=== PATIENT | female | born 1950 | race Caucasian/White ===

== ENCOUNTER 2016-06-13 15:37 | Emergency (ER) | payer MEDICARE, OTHER ==
[2016-06-13 15:46] VITALS: BP 131/63; PULSE 71; RESP 18; TEMP 97.9
--- NOTE | 2016-06-13 15:58 | ED ---
Neck Injury/Pain HPI - General Chief Complaint: Neck Pain/Injury Stated Complaint: Neck Pain Time Seen by Provider: 06/13/16 15:48 Source: patient, RN notes reviewed Mode of arrival: ambulatory Limitations: no limitations - History of Present Illness Initial Comments: 65-year-old female presents emergency Department with chief complaint of neck pain. Patient's had neck pain for last 1-2 weeks that she woke up with a 1 morning. She states on the right side and is not getting any better. She states she has an appointment in [address] Lim orthopedic surgeon. Patient states that she's been taking her tramadol states that helping. She has tried some heat or minimal relief. Patient denies any pain or paresthesias of her upper extremities. Denies any chest pain, shortness breath or any focal weakness. Denies any headache associated with this. She denies fever, chills, blurred vision, dizziness. She is increased pain with range of motion of her neck, better at rest. - Related Data Previous Rx's Medication Instructions Recorded Acetaminophen-Codeine 300-30mg 1 tab PO Q4H PRN #20 tablet 06/13/16 [Tylenol #3] Orphenadrine [Norflex] 100 mg PO Q12H #14 tablet.er 06/13/16 Allergies Allergy/AdvReac Type Severity Reaction Status Date / Time Sulfa (Sulfonamide Allergy Unknown Verified 06/13/16 15:46 Antibiotics) Review of Systems ROS Statement: Those systems with pertinent positive or pertinent negative responses have been documented in the HPI. ROS Other: All systems not noted in ROS Statement are negative. Past Medical History Past Medical History: Diabetes Mellitus, GERD/Reflux, Hyperlipidemia, Hypertension History of Any Multi-Drug Resistant Organisms: None Reported Past Surgical History: Hysterectomy, Orthopedic Surgery Past Psychological History: No Psychological Hx Reported Smoking Status: Never smoker Past Alcohol Use History: None Reported Past Drug Use History: None Reported General Exam Limitations: no limitations General appearance: alert, in no apparent distress Head exam: Present: atraumatic, normocephalic, normal inspection Eye exam: Present: normal appearance, PERRL, EOMI. Absent: scleral icterus, conjunctival injection, periorbital swelling ENT exam: Present: normal exam, normal oropharynx, mucous membranes moist, TM's normal bilaterally, normal external ear exam Neck exam: Present: normal inspection, tenderness (Mild tenderness over the right trapezius, paraspinal there is no step-off deformity of the cervical spine there is muscle spasm noted over the right trapezius), full ROM (Moderate discomfort with rotation, flexion and extension). Absent: meningismus, lymphadenopathy Respiratory exam: Present: normal lung sounds bilaterally. Absent: respiratory distress, wheezes, rales, rhonchi, stridor Cardiovascular Exam: Present: regular rate, normal rhythm, normal heart sounds. Absent: systolic murmur, diastolic murmur, rubs, gallop, clicks Extremities exam: Present: other (Full strength and neurovascularly intact upper extremities patient does report mild discomfort to the right side of her neck with range of motion right shoulder) Back exam: Present: full ROM. Absent: tenderness, paraspinal tenderness, vertebral tenderness Neurological exam: Present: alert, oriented X3, CN II-XII intact, reflexes normal. Absent: motor sensory deficit Course Vital Signs 06/13/16 15:43 Temperature 97.9 F Pulse Rate 71 Respiratory 18 Rate Blood Pressure 131/63 O2 Sat by Pulse 99 Oximetry Medical Decision Making - Medical Decision Making 65-year-old female emergency Department with chief complaint of right-sided neck pain. Patient has of obvious muscle spasm over the right trapezius patient has muscle spasm/torticollis. Patient we treated with muscle relaxers at this time continuation of he, stretching. We discussed follow-up with her orthopedic doctor and primary care physician for possible physical therapy. Return parameters were discussed Disposition Clinical Impression: Neck pain, Trapezius muscle spasm Disposition: HOME SELF-CARE Condition: Stable Instructions: Spasmodic Torticollis (ED) Additional Instructions: Please return to the Emergency Department if symptoms worsen or any other concerns. Prescriptions: Acetaminophen-Codeine 300-30mg [Tylenol #3] 1 tab PO Q4H PRN #20 tablet PRN Reason: pain Orphenadrine [Norflex] 100 mg PO Q12H #14 tablet.er Referrals: Ilir Puente MD [Primary Care Provider] - 1-2 days Time of Disposition: 16:34
--- NOTE | 2016-06-13 16:20 | XR ---
EXAMINATION TYPE: XR cervical spine comp DATE OF EXAM: 06/13/2016 4:10 PM COMPARISON: NONE HISTORY: 65-year-old female neck pain for a couple weeks more severe since yesterday, radiating pain on the right side. TECHNIQUE: 5 views FINDINGS: No predental space widening or prevertebral soft tissue swelling. Hypertrophic facet arthropathy is present especially in the mid cervical spine with grade 1 anterolis thesis at C4-C5 and C5-C6. There is no significant bony spondylotic neuroforaminal narrowing identified on the oblique views. No rmal odontoid view. 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
[2016-06-13] MEDS ORDERED: KETOROLAC 60 MG/2 ML VIAL IM STA (16:47)
[2016-06-13] MEDS ORDERED: ORPHENADRINE 30 MG/ML 2 ML VIAL IM STA (16:47)
== END 2016-06-13 16:55 | disposition home or self-care (01) ==
LOC: EC 15:37
DX: M62.838 Other muscle spasm (principal); M54.2 Cervicalgia; Z88.2 Allergy status to sulfonamides
CPT/HCPCS: 72050; 99283; 96372 ×2; J2360; J1885

== ENCOUNTER → 2016-07-31 | Outpatient (CLI) | payer MEDICARE, OTHER ==
--- NOTE | 2016-08-02 09:36 | MM ---
Reason for exam: screening (asymptomatic). Last mammogram was performed 1 year ago. History: Patient is postmenopausal. Family history of breast cancer in paternal grandmother, breast cancer in maternal aunt, breast cancer in mother at age 61, and breast cancer in paternal aunt. Took estrogen for 8 years beginning at age 49. Physical Findings: A clinical breast exam by your physician is recommended on an annual basis and results should be correlated with mammographic findings. MG 3D Screening Mammo W/Cad Bilateral CC and MLO view(s) were taken. Prior study comparison: July 30, 2015, bilateral MG screening mammo w CAD. June 30, 2014, bilateral MG screening mammo w CAD. June 10, 2013, bilateral digital screening mammo w/CAD. There are scattered fibroglandular densities. No significant changes when compared with prior studies. ASSESSMENT: Negative, BI-RAD 1 RECOMMENDATION: Routine screening mammogram of both breasts in 1 year.
== END | disposition home or self-care (01) ==
LOC: RADMAMWWP 11:28
PROVIDERS: ATTEND Family Medicine
DX: Z12.31 Encounter for screening mammogram for malignant neoplasm of breast (principal)
CPT/HCPCS: 77063; G0202

== ENCOUNTER 2017-02-27 08:09 | Emergency (ER) | payer MEDICARE, OTHER ==
--- NOTE | 2017-02-27 08:33 | ED ---
Fall HPI - General Chief Complaint: Fall Stated Complaint: Fell Time Seen by Provider: 02/27/17 08:22 Source: patient, RN notes reviewed Mode of arrival: ambulatory - History of Present Illness Initial Comments: This a 66-year-old female presents emergency Department chief complaint of slip and fall on ice. Patient states she felt the ground was just wet but was ice. She fell onto asphalt. Patient complains of swelling by her left elbow with mild tenderness and pain with movement, pain to the left hand. Patient is right -hand dominant. Patient denies head injury no LOC. Patient also complains of very minimal pain to her left anterior lateral rib cage region. Patient states she has no back pain no lower extremity injuries. - Related Data Home Medications Medication Instructions Recorded Confirmed Acetaminophen/Diphenhydramine 1 tab PO HS 02/27/17 02/27/17 [Tylenol PM 500-25mg] [facility] 1 tab PO DAILY 02/27/17 02/27/17 Aspirin EC [Ecotrin Low Dose] 81 mg PO DAILY 02/27/17 02/27/17 Atorvastatin [Lipitor] 80 mg PO HS 02/27/17 02/27/17 Bimatoprost [Lumigan .01% Ophth 1 drop BOTH EYES HS 02/27/17 02/27/17 Soln] Calcium Carbonate/Vitamin D3 1 tab PO DAILY 02/27/17 02/27/17 [Calcium 600-Vit D3 200 Tablet] Hydrochlorothiazide [Hydrodiuril] 12.5 mg PO DAILY 02/27/17 02/27/17 Losartan Potassium [Cozaar] 100 mg PO DAILY 02/27/17 02/27/17 Metoprolol Succinate (ER) [Toprol 50 mg PO DAILY 02/27/17 02/27/17 Xl] Multivitamins, Thera [Multivitamin 1 tab PO DAILY 02/27/17 02/27/17 (formulary)] Omeprazole 20 mg PO DAILY 02/27/17 02/27/17 amLODIPine [Norvasc] 10 mg PO DAILY 02/27/17 02/27/17 metFORMIN HCL ER [Glucophage Xr] 500 mg PO HS 02/27/17 02/27/17 traMADol HCL [Ultram] 50 mg PO Q6HR PRN 02/27/17 02/27/17 Allergies Allergy/AdvReac Type Severity Reaction Status Date / Time Sulfa (Sulfonamide Allergy Rash/Hives Verified 02/27/17 08:32 Antibiotics) Review of Systems ROS Statement: Those systems with pertinent positive or pertinent negative responses have been documented in the HPI. ROS Other: All systems not noted in ROS Statement are negative. Past Medical History Past Medical History: Diabetes Mellitus, GERD/Reflux, Hyperlipidemia, Hypertension History of Any Multi-Drug Resistant Organisms: None Reported Past Surgical History: Hysterectomy, Joint Replacement, Orthopedic Surgery Additional Past Surgical History / Comment(s): jas knee replacement Past Psychological History: No Psychological Hx Reported Smoking Status: Never smoker Past Alcohol Use History: None Reported Past Drug Use History: None Reported General Exam Limitations: no limitations General appearance: alert, in no apparent distress Head exam: Present: atraumatic, normocephalic, normal inspection Eye exam: Present: normal appearance, PERRL, EOMI. Absent: scleral icterus, conjunctival injection, periorbital swelling Neck exam: Present: normal inspection, full ROM. Absent: tenderness, meningismus, lymphadenopathy Respiratory exam: Present: normal lung sounds bilaterally, chest wall tenderness (Mild tenderness over the mid anterior to lateral ribs). Absent: respiratory distress, wheezes, rales, rhonchi, stridor Cardiovascular Exam: Present: regular rate, normal rhythm, normal heart sounds. Absent: systolic murmur, diastolic murmur, rubs, gallop, clicks GI/Abdominal exam: Present: soft, normal bowel sounds. Absent: distended, tenderness, guarding, rebound, rigid Extremities exam: Present: other (Left arm there is a large hematoma just distal left elbow patient for range of motion no pain with pronation supination there is tenderness over the left hand fifth are carpal region with no iris deformity neurovascular intact) Back exam: Present: full ROM. Absent: tenderness, muscle spasm, paraspinal tenderness, vertebral tenderness Skin exam: Present: warm, dry, intact, normal color. Absent: rash Course Vital Signs 02/27/17 08:11 Temperature 97.2 F L Pulse Rate 74 Respiratory 16 Rate Blood Pressure 165/80 O2 Sat by Pulse 99 Oximetry Procedures - Orthopedic Splinting/Casting Injury #1 Side: left Upper Extremity Injury Location: long arm, elbow Upper Extremity Immobilizer: sling/shoulder immobilizer, synthetic pre-padded splint Medical Decision Making - Medical Decision Making 66-year-old female presented for fall. X-rays review shows possible radial head fracture. Patient was splinted and placed in a sling will follow-up with orthopedics. Return parameters were discussed. Disposition Clinical Impression: Fall, Radial head fracture, Rib contusion Disposition: HOME SELF-CARE Condition: Stable Instructions: Arm Fracture in Adults (ED) Additional Instructions: Please return to the Emergency Department if symptoms worsen or any other concerns. Referrals: Ilir Puente MD [Primary Care Provider] - 1-2 days Shailesh Irby DO [Doctor of Osteopathic Medicine] - 1-2 days Time of Disposition: 09:50
--- NOTE | 2017-02-27 08:51 | XR ---
EXAMINATION TYPE: XR elbow complete LT DATE OF EXAM: 02/27/2017 CLINICAL HISTORY: pain TECHNIQUE: Frontal, lateral and oblique images of the left elbow are obtained. COMPARISON: None. FINDINGS: There is irregularity of the radial head however this may be chronic in nature. Correlate c linically. Mild prominence of the anterior fat pad. The overlying soft tissue appears unremarkable. IMPRESSION: Radial head irregularity. Correlate for possible fracture. Chronicity of this finding is indeterminat e.
--- NOTE | 2017-02-27 08:58 | XR ---
EXAMINATION TYPE: XR hand complete LT DATE OF EXAM: 02/27/2017 CLINICAL HISTORY: pain TECHNIQUE: Frontal, lateral and oblique images of the left hand are obtained. COMPARISON: None. FINDINGS: There is no acute fracture/dislocation evident. Severe joint space narrowing involving the second third fourth and fifth DIP joints with periarticular soft tissue swelling noted and bony frag mentation identified greatest involving the second digit. Moderate degenerative narrowing involving t he first carpal metacarpal joint as well. The overlying soft tissue appears unremarkable. IMPRESSION: There is no acute fracture or dislocation. ICD 10 NO FRACTURE, INITIAL EVALUATION
--- NOTE | 2017-02-27 08:59 | XR ---
EXAMINATION TYPE: XR ribs LT w pa chest xray DATE OF EXAM: 02/27/2017 COMPARISON: NONE HISTORY: Pain TECHNIQUE: Single view of the chest four views of the ribs are submitted. FINDINGS: The lungs are clear. No Evidence for pneumothorax. No evidence for focal contusion. Medi astinal structures are midline. Evaluation of the ribs fails to demonstrate evidence for displaced r ib fracture or secondary sign of rib fracture. IMPRESSION: Negative study
[2017-02-27 10:03] VITALS: BP 135/95; PULSE 62; RESP 18; TEMP 98.1
== END 2017-02-27 10:02 | disposition home or self-care (01) ==
LOC: EC 08:09
DX: S52.122A Displaced fracture of head of left radius, initial encounter for closed fracture (principal); S20.212A Contusion of left front wall of thorax, initial encounter; E11.9 Type 2 diabetes mellitus without complications; K21.9 Gastro-esophageal reflux disease without esophagitis; E78.5 Hyperlipidemia, unspecified; I10 Essential (primary) hypertension; Z79.82 Long term (current) use of aspirin; Z79.84 Long term (current) use of oral hypoglycemic drugs; Z79.899 Other long term (current) drug therapy; Z88.2 Allergy status to sulfonamides; W00.0XXA Fall on same level due to ice and snow, initial encounter
CPT/HCPCS: 29105; 99283

== ENCOUNTER → 2017-09-10 | Outpatient (CLI) | payer MEDICARE, OTHER ==
--- NOTE | 2017-09-11 09:57 | MM ---
Reason for exam: screening (asymptomatic). Last mammogram was performed 1 year and 1 month ago. History: Patient is postmenopausal. Family history of breast cancer in paternal grandmother, breast cancer in maternal aunt, breast cancer in mother at age 61, and breast cancer in paternal aunt. Took estrogen for 8 years beginning at age 49. Physical Findings: A clinical breast exam by your physician is recommended on an annual basis and results should be correlated with mammographic findings. MG 3D Screening Mammo W/Cad Bilateral CC and MLO view(s) were taken. Prior study comparison: July 31, 2016, bilateral MG 3d screening mammo w/cad. July 30, 2015, bilateral MG screening mammo w CAD. The breast tissue is heterogeneously dense. This may lower the sensitivity of mammography. Finding #1: There is a 20 mm equal density (isodense) mass in the central position of the left breast. Finding #2: There are typically benign calcifications. ASSESSMENT: Incomplete: need additional imaging evaluation, BI-RAD 0 RECOMMENDATION: Special view mammogram of the left breast. If lesion persists on supplemental views, image directed ultrasound is recommended. [facility] will attempt to contact patient to return for supplemental views and ultrasound if indicated.
== END | disposition home or self-care (01) ==
LOC: RADMAMWWP 09:40
PROVIDERS: ATTEND Family Medicine
DX: Z12.31 Encounter for screening mammogram for malignant neoplasm of breast (principal)
CPT/HCPCS: 77063; 77067

== ENCOUNTER → 2017-09-14 | Outpatient (CLI) | payer MEDICARE, OTHER ==
--- NOTE | 2017-09-17 08:51 | MM ---
Reason for exam: additional evaluation requested from abnormal screening. Last mammogram was performed less than 1 month ago. History: Patient is postmenopausal. Family history of breast cancer in paternal grandmother, breast cancer in maternal aunt, breast cancer in mother at age 61, and breast cancer in paternal aunt. Took estrogen for 8 years beginning at age 49. Physical Findings: Nurse did not find any significant physical abnormalities on exam. MG 3D Work Up W/Cad LT Spot compression CC and LM view(s) were taken of the left breast. Prior study comparison: September 10, 2017, bilateral MG 3d screening mammo w/cad. July 31, 2016, bilateral MG 3d screening mammo w/cad. There is no discrete abnormality. These results were verbally communicated with the patient and result sheet given to the patient on 09/14/17. ASSESSMENT: Negative, BI-RAD 1 RECOMMENDATION: Return to routine screening mammogram schedule for both breasts.
== END | disposition home or self-care (01) ==
LOC: RADMAMWWP 10:10
PROVIDERS: ATTEND Family Medicine
DX: R92.8 Other abnormal and inconclusive findings on diagnostic imaging of breast (principal)
CPT/HCPCS: 77065; G0279; 77061

== ENCOUNTER 2017-11-21 08:13 | Day surgery (SDC) | payer MEDICARE, OTHER ==
[2017-11-15 12:21] VITALS: BMI 23.3
[~2017-11-21 08:13] MED LIST: LACTATED RINGERS 1,000 ML IV SCH; MOXIFLOXACIN HCL 0.5% DROPS 3 ML BTL OP ONE; TETRACAINE 0.5% OPHTH (PF) DROPS 4 ML BTL OP ONE; TIMOLOL 0.5% OPHTH DROPS 5 ML BTL OP ONE
[2017-11-21] MEDS: PHENYLEPHRINE 2.5% OPHTH DRP 2ML OP NR ×3 (11:06→11:22)
[2017-11-21] MEDS: CYCLOPENTOLATE 1% OPHTH SOLN 2 ML BTL OP ONE ×3 (11:10→11:25)
[2017-11-21] MEDS ORDERED: LIDOCAINE 1% 20 ML VIAL (10MG/ML) FOR IV START INTRADERMA ONE (11:18)
[2017-11-21 11:22] VITALS: RESP 16; TEMP 97.8
[2017-11-21 11:27] LABS: Glucose,Whole Blood 132 mg/dL (75-99)
[2017-11-21] MEDS ORDERED: LIDOCAINE 1% (PF) 10MG/ML VIAL SQ ONE (12:46)
[2017-11-21] MEDS ORDERED: DUOVISC KIT (GREEN BOX) INTRAOCULA ONE (12:46)
[2017-11-21] MEDS ORDERED: BALANCED SALT IRRIG SOLN COMB2 15 ML IRRIG.SOLN IRRIGATION ONE (12:46)
[2017-11-21] MEDS ORDERED: fentaNYL (PF) 50 MCG/ML 2 ML AMP ONE (12:57)
[2017-11-21] MEDS ORDERED: EPINEPHrine (PF) 0.3 ML in BALANCED SALT IRRIG SOLN COMB2 500 ML IRRIGATION ONE (13:22)
--- NOTE | 2017-11-21 13:31 | P.OP ---
Date of Procedure: 11/21/17 Preoperative Diagnosis: NS & CS & POAG mild Postoperative Diagnosis: same Procedure(s) Performed: PIOL, OD Implants: [id number] 22.50 & GTS 100L Anesthesia: MAC Surgeon: Stanton Cordova Estimated Blood Loss (ml): 0 Pathology: none sent Condition: stable Disposition: same day Indications for Procedure: blurry vision and POAG Operative Findings: No complications
[2017-11-21 13:55] VITALS: BP 116/73; PULSE 54
--- NOTE | 2017-11-22 07:32 | OP ---
OPERATIVE REPORT DATE OF SURGERY: 11/21/2017. PROCEDURES: Phacoemulsification of cataract with intraocular lens implant and eye stent implantation right eye. PREOPERATIVE DIAGNOSES: 1. Nuclear sclerosis. 2. Cortical sclerosis. 3. Primary open-angle glaucoma, mild stage. 4. Regular astigmatism. POSTOPERATIVE DIAGNOSES: 1. Nuclear sclerosis. 2. Cortical sclerosis. 3. Primary open-angle glaucoma, mild stage. 4. Regular astigmatism. SURGEON: Dr. Stanton Cordova. ANESTHESIA: Topical. ESTIMATED BLOOD LOSS: None. SPECIMEN TAKEN: None. NARRATIVE: After obtaining the appropriate consent, the patient was brought to the operating room where she was asked to sit upright and the axes of 0 and 180 degrees were identified and marked on the patient's corneal limbus. She was then placed in the proper supine position under cardiac monitoring, prepped and draped in the usual sterile manner. She was approached from her right temporal side and at the 11 o'clock position, a 20-gauge paracentesis was created through which 1% Xylocaine MPF was mixed with balanced salt solution in 1:1 ratio. This was followed by stabilization of the anterior chamber with Viscoat. The Viscoat medication was placed on the patient's cornea. At the 9 o'clock position, a 2.5 mm keratome was used to create a self-sealing corneal flap incision in a fashion. The patient was then asked to rotate her head approximately 45 degrees to her left and to maintain her gaze in that particular direction. A Gl[place]kos [id number] was passed across the anterior chamber and implanted into the trabecular meshwork on the nasal side of the eye. The patient was then brought to the normal supine position and a cystotome was then used to start a continuous tear capsulorrhexis which was completed using the Utrata forceps. Hydrodissection and hydrodelineation of the lens was accomplished with balanced salt solution. Phacoemulsification of the lens utilizing phaco chop was accomplished in 14.03 seconds at 11% power. Additional Xylocaine MPF was instilled into the anterior chamber. This was followed by removal of the remaining cortex under irrigation and aspiration along with careful polishing of the posterior capsule in the capsule vacuum mode. Provisc was instilled into the capsular bag, which was used to stabilize the anterior chamber. This was followed by a placement of an RAMYA [id number] 22.5 diopter posterior chamber intraocular lens into the capsular bag without difficulty. The remaining viscoelastic was removed from in and around the intra-ocular lens as well as the anterior chamber. Using the tip of the irrigation and aspiration instrument, the intraocular lens was then rotated to the 85 degree axis in concordance with the previously acquired corneal topography information. The eye was then brought to normal intraocular pressures through the paracentesis port with balanced salt solution. The incisions were confirmed watertight. She then received 2 drops of 0.5% timolol followed by 2 drops of Vigamox, was then lightly patched and shielded in the usual manner. There were no complications from the procedure. She tolerated the procedure well and was returned to outpatient recovery in good condition. MMODL / IJN: [id number] /
== END 2017-11-21 14:09 | disposition home or self-care (01) ==
LOC: OR 08:13
PROVIDERS: ATTEND Ophthalmology
DX: H25.13 Age-related nuclear cataract, bilateral (principal); H25.011 Cortical age-related cataract, right eye; E11.36 Type 2 diabetes mellitus with diabetic cataract; H40.1111 Primary open-angle glaucoma, right eye, mild stage; H40.1122 Primary open-angle glaucoma, left eye, moderate stage; H52.229 Regular astigmatism, unspecified eye; H40.233 Intermittent angle-closure glaucoma, bilateral; H47.099 Other disorders of optic nerve, not elsewhere classified, unspecified eye; H43.811 Vitreous degeneration, right eye; H52.12 Myopia, left eye; H52.4 Presbyopia; H04.129 Dry eye syndrome of unspecified lacrimal gland; H35.363 Drusen (degenerative) of macula, bilateral; E11.319 Type 2 diabetes mellitus with unspecified diabetic retinopathy without macular edema; H02.055 Trichiasis without entropion left lower eyelid; I11.9 Hypertensive heart disease without heart failure; D64.9 Anemia, unspecified; M19.90 Unspecified osteoarthritis, unspecified site; J30.2 Other seasonal allergic rhinitis; Z79.84 Long term (current) use of oral hypoglycemic drugs; Z79.891 Long term (current) use of opiate analgesic; Z79.899 Other long term (current) drug therapy; Z88.2 Allergy status to sulfonamides; Z88.8 Allergy status to other drugs, medicaments and biological substances; Z96.653 Presence of artificial knee joint, bilateral; Z90.710 Acquired absence of both cervix and uterus
CPT/HCPCS: 0191T; 66984

== ENCOUNTER 2017-12-05 08:11 | Day surgery (SDC) | payer MEDICARE, OTHER ==
[2017-11-30 10:33] VITALS: BMI 23.3
[~2017-12-05 08:11] MED LIST changes: +HYDROmorphone 0.5 MG/0.5 ML SYRINGE IVP PRN; +LIDOCAINE 1% 20 ML VIAL (10MG/ML) FOR IV START INTRADERMA PRN
[2017-12-05] MEDS: PHENYLEPHRINE 2.5% OPHTH DRP 2ML OP NR ×3 (08:56→09:14)
[2017-12-05] MEDS: CYCLOPENTOLATE 1% OPHTH SOLN 2 ML BTL OP ONE ×3 (08:59→09:17)
[2017-12-05 09:13] VITALS: RESP 16; TEMP 98
[2017-12-05 09:14] LABS: Glucose,Whole Blood 148 mg/dL (75-99)
[2017-12-05] MEDS ORDERED: DUOVISC KIT (GREEN BOX) INTRAOCULA ONE (10:24)
[2017-12-05] MEDS ORDERED: EPINEPHrine (PF) 0.3 ML in BALANCED SALT IRRIG SOLN COMB2 500 ML IRRIGATION ONE (10:24)
[2017-12-05] MEDS ORDERED: LIDOCAINE 1% (PF) 10MG/ML VIAL SQ ONE (10:24)
[2017-12-05] MEDS ORDERED: BALANCED SALT IRRIG SOLN COMB2 15 ML IRRIG.SOLN IRRIGATION ONE (10:24)
--- NOTE | 2017-12-05 10:46 | P.OP ---
Date of Procedure: 12/05/17 Preoperative Diagnosis: NS & CS & POAG mod Postoperative Diagnosis: same Procedure(s) Performed: PIOL & iStent implant Implants: [id number] 23.00 & [id number] Anesthesia: MAC Surgeon: Stanton Cordova Estimated Blood Loss (ml): 2 Pathology: none sent Condition: stable Disposition: same day Indications for Procedure: blurry vision and glaucoma Operative Findings: No complications
[2017-12-05 11:09] VITALS: BP 137/74; PULSE 62
--- NOTE | 2017-12-05 18:24 | OP ---
OPERATIVE REPORT DATE OF SURGERY: December 05, 2017. PROCEDURE PERFORMED: Phacoemulsification of cataract and intraocular lens implant of the left eye with eye stent implantation, left eye. PREOPERATIVE DIAGNOSES: Nuclear sclerosis cortical sclerosis and primary open-angle glaucoma, moderate and regular astigmatism. POSTOPERATIVE DIAGNOSES: Nuclear sclerosis cortical sclerosis and primary open-angle glaucoma, moderate and regular astigmatism. SURGEONS: Dr. Stanton Cordova. ANESTHESIA: Topical. ESTIMATED BLOOD LOSS: None. SPECIMEN: Taken none. NARRATIVE: After obtaining the appropriate consent, the patient was brought to the operating room. There she was asked to sit upright and the axis 0 and 180 degrees were identified and marked with a gentian ronaldo marker. She was then placed in the proper supine position on the bed and under cardiac monitoring and was then prepped and draped in the usual sterile manner. She was approached from her left temporal side using previously acquired corneal topography information, the axis of 98 degrees was identified and marked on the patient's eye. At the 5 o'clock position an MVR blade was used to create a paracentesis port. Through this opening 1% Xylocaine MPF 50 50 mix of balanced salt solution was injected into the anterior chamber. This was followed by stabilization of the anterior chamber with Viscoat. At the 5 o'clock position, a 2.5 mm keratome was used to create a self-sealing corneal flap incision in a Langerman's fashion. A small amount of Viscoat was placed on the patient's cornea and the patient was asked to rotate her head approximately 45 degrees to her right while maintaining a straight- ahead gaze. The gonioscopy lens was placed on the patient's cornea and identification of the trabecular meshwork was easily accomplished. Using an eye stent model [id number], the instrument was passed across the anterior chamber of the eye to the nasal trabecular meshwork and the stent was placed within each lens canal beneath the trabecular meshwork. There was noted an appropriate amount of blood at the completion of placement of the stent. The patient was then returned to the normal supine position and a cystotome was introduced to begin a continuous tear capsulorrhexis which was completed using the Utrata forceps. Hydrodissection and hydrodelineation of the lens was accomplished with balanced salt solution. Phacoemulsification lens utilizing phaco chop was accomplished in 7.59 seconds at 8% power. Additional Xylocaine MPF was instilled in the eye, followed by removal of the remaining cortex in and around the capsular bag along with careful polishing of the posterior capsule in the capsule vacuum mode. Provisc was then placed into the capsular bag and an RAMYA model [id number] 225 23.0 diopter posterior chamber intraocular lens was then placed into the capsular bag without difficulty. Irrigation/aspiration was used to remove the viscoelastic from in and around the intra-ocular lens along with reorienting the lens in its prescribed position at the 98 degree axis. The lens was lightly tamped using the tip of the IA instrument. The balance of the viscoelastic from the anterior chamber was also removed under that irrigation aspiration. The eye was then brought to normal intraocular pressures through the paracentesis port with balanced salt solution and the incisions were confirmed watertight. She then received 2 drops of 0.5% timolol followed by 2 drops of moxifloxacin, was then lightly patched and shielded in the usual manner. There were no complications from the procedure. She tolerated the procedure well and was returned to outpatient recovery in good condition. RYANN / LAURELN: [id number] /
== END 2017-12-05 11:24 | disposition home or self-care (01) ==
LOC: OR 08:11
PROVIDERS: ATTEND Ophthalmology
DX: H25.12 Age-related nuclear cataract, left eye (principal); H25.012 Cortical age-related cataract, left eye; E11.36 Type 2 diabetes mellitus with diabetic cataract; H40.1122 Primary open-angle glaucoma, left eye, moderate stage; H40.1111 Primary open-angle glaucoma, right eye, mild stage; H52.229 Regular astigmatism, unspecified eye; H40.233 Intermittent angle-closure glaucoma, bilateral; H47.099 Other disorders of optic nerve, not elsewhere classified, unspecified eye; H43.811 Vitreous degeneration, right eye; H52.12 Myopia, left eye; H52.4 Presbyopia; H04.129 Dry eye syndrome of unspecified lacrimal gland; H53.10 Unspecified subjective visual disturbances; H35.363 Drusen (degenerative) of macula, bilateral; E11.319 Type 2 diabetes mellitus with unspecified diabetic retinopathy without macular edema; I11.9 Hypertensive heart disease without heart failure; K21.9 Gastro-esophageal reflux disease without esophagitis; Z96.1 Presence of intraocular lens; Z96.653 Presence of artificial knee joint, bilateral; Z79.899 Other long term (current) drug therapy; Z79.891 Long term (current) use of opiate analgesic; Z88.2 Allergy status to sulfonamides; Z90.710 Acquired absence of both cervix and uterus
CPT/HCPCS: 0191T; 66984

== ENCOUNTER → 2018-10-21 | Outpatient (CLI) | payer MEDICARE, OTHER ==
--- NOTE | 2018-10-21 15:01 | MM ---
Reason for exam: screening (asymptomatic). Last mammogram was performed 1 year and 1 month ago. History: Patient is postmenopausal. Family history of breast cancer in paternal grandmother, breast cancer in maternal aunt, breast cancer in mother at age 61, and breast cancer in paternal aunt. Took estrogen for 8 years beginning at age 49. Physical Findings: A clinical breast exam by your physician is recommended on an annual basis and results should be correlated with mammographic findings. MG 3D Screening Mammo W/Cad Bilateral CC and MLO view(s) were taken. Prior study comparison: September 14, 2017, left breast MG 3d work up w/cad LT. September 10, 2017, bilateral MG 3d screening mammo w/cad. There are scattered fibroglandular densities. Focal asymmetry central left CC view 6.4cm from nipple. This finding is changed when compared with previous exams. ASSESSMENT: Incomplete: need additional imaging evaluation, BI-RAD 0 RECOMMENDATION: Special view mammogram of the left breast. If lesion persists on supplemental views, image directed ultrasound is recommended. [facility] will attempt to contact patient to return for supplemental views and ultrasound if indicated.
== END | disposition home or self-care (01) ==
LOC: RADMAMWWP 09:06
PROVIDERS: ATTEND Family Medicine
DX: Z12.31 Encounter for screening mammogram for malignant neoplasm of breast (principal)
CPT/HCPCS: 77063; 77067

== ENCOUNTER → 2018-11-04 | Outpatient (CLI) | payer MEDICARE, OTHER ==
--- NOTE | 2018-11-04 11:37 | MM ---
Reason for exam: additional evaluation requested from abnormal screening. Last mammogram was performed less than 1 month ago. History: Patient is postmenopausal. Family history of breast cancer in paternal grandmother, breast cancer in maternal aunt, breast cancer in mother at age 61, and breast cancer in paternal aunt. Took estrogen for 8 years beginning at age 49. Physical Findings: Nurse did not find any significant physical abnormalities on exam. MG 3D Work Up W/Cad LT Spot compression CC, spot compression MLO, and ML view(s) were taken of the left breast. Prior study comparison: October 21, 2018, bilateral MG 3d screening mammo w/cad. September 14, 2017, left breast MG 3d work up w/cad LT. There are scattered fibroglandular densities. Left upper outer quadrant distortion persists 5cm from nipple at 12 o'clock. These results were verbally communicated with the patient and result sheet given to the patient on 11/04/18. ASSESSMENT: Incomplete: need additional imaging evaluation, BI-RAD 0 RECOMMENDATION: Ultrasound of the left breast.
--- NOTE | 2018-11-04 11:39 | USB ---
Reason for exam: additional evaluation requested from abnormal screening. History: Patient is postmenopausal. Family history of breast cancer in paternal grandmother, breast cancer in maternal aunt, breast cancer in mother at age 61, and breast cancer in paternal aunt. Took estrogen for 8 years beginning at age 49. US Breast Workup Limited LT Left limited breast ultrasound including focal area of concern, retroareolar and axilla demonstrates no cystic or solid lesion seen. No sonographic correlate to the suspicious sonographic finding. These results were verbally communicated with the patient and result sheet given to the patient on 11/04/18. ASSESSMENT: Suspicious, BI-RAD 4 RECOMMENDATION: Stereotactic core biopsy of the left breast. (3D) Called with mammographic findings and has scheduled an appointment for the patient for 11/29/18 at 11:[address] Diaz. PRELIMINARY REPORT CALLED AND FAXED TO DR. DIAZ ON 11/04/18.
== END | disposition home or self-care (01) ==
LOC: RADMAMWWP 08:53
PROVIDERS: ATTEND Family Medicine
DX: R92.8 Other abnormal and inconclusive findings on diagnostic imaging of breast (principal)
CPT/HCPCS: 77065; 76642; G0279; 77061

== ENCOUNTER → 2018-11-29 | Outpatient (CLI) | payer MEDICARE, OTHER ==
[2018-11-29 11:18] VITALS: BP 146/73; PULSE 56; RESP 16; TEMP 97.9; BMI 24.2
--- NOTE | 2018-11-29 11:43 | P.GSHP ---
History of Present Illness H&P Date: 11/29/18 Chief Complaint: abnormal mammogram Debbie is a 59-year-old white female who presents for breast evaluation. She had a recent routine screening mammogram which revealed focal asymmetry in the central portion of the left breast 6.4 cm from the nipple. An ultrasound did not show anything of concern at this site. The patient was recommended to undergo a 3-D stereotactic core biopsy of the left breast. The patient states that her left breast is larger than her right breast and has been such for some time. At times if she is bumped in the breast by a grandchild or other pressure she has some discomfort in the upper central portion of the breast. She does not feel any discrete lumps or masses. She has no history of recent trauma or infection in the breast. She has no nipple discharge or skin changes in the breast. She does drink 3 cups of coffee per day. She does not smoke and is not exposed to secondhand smoke. She has chocolate on occasion. The patient was given the option in the past to do chemoprevention with tamoxifen and she chose not to. Marsha model risk evaluation: 5 year risk 3% versus 2.1% for average 68-year-old female Lifetime risk 9.5% versus 6.9% for average 68-year-old female We have discussed chemoprevention 5 year risk greater than 1.7% qualified. The patient however at this time is not interested. Family history: mother: breast cancer at 64, kidney cancer maternal aunt: breat cancer, hodgkins maternal grandmother: skin cancer paternal aunt: breast cancer Hormonal History: menarche: 16 , breast fed: no, age at first : 20 menopause: complete hysterectomy at 49 no cancer BCP: 2 years hormones: 1 year Surgical history: 1. Complete hysterectomy 2.bilateral knee replacement 3. bilateral cataract surgery Medical HIstory: Dm HTN high cholesterol glaucoma Social History: smoke: none alcohol: none drugs: none - Constitutional Constitutional: Reports sweats, Denies chills, Denies fever - EENT Eyes: denies blurred vision, denies pain Ears: deny: decreased hearing, tinnitus Ears, nose, mouth and throat: Denies headache, Denies sore throat - Breasts Breasts: bilateral: as per HPI - Cardiovascular Cardiovascular: Denies chest pain, Denies shortness of breath - Respiratory Respiratory: Denies cough, Denies 7 - Gastrointestinal Gastrointestinal: Denies abdominal pain, Denies diarrhea, Denies nausea, Denies vomiting - Genitourinary (Female) Genitourinary: Denies dysuria, Denies hematuria - Menstruation Menstruation: Reports post hysterectomy - Musculoskeletal Comment: arthritis - Integumentary Integumentary: Denies pruritus, Denies rash - Neurological Neurological: Denies numbness, Denies weakness - Psychiatric Psychiatric: Denies anxiety, Denies depression - Endocrine Comment: diabetes, metformin Endocrine: Denies fatigue, Denies weight change - Hematologic/Lymphatic Comment: baby aspirin daily - Allergic/Immunologic Allergic/Immunologic: Reports seasonal allergies Past Medical History Past Medical History: Diabetes Mellitus, Eye Disorder, GERD/Reflux, Hyperlipidemia, Hypertension Additional Past Medical History / Comment(s): CATARACTS. NARROW ANGLE GLAUCOMA History of Any Multi-Drug Resistant Organisms: None Reported Past Surgical History: Hysterectomy, Joint Replacement, Orthopedic Surgery Additional Past Surgical History / Comment(s): jas knee replacement; R Cataract; R knee scope, colonoscopy Past Anesthesia/Blood Transfusion Reactions: No Reported Reaction Past Psychological History: No Psychological Hx Reported Smoking Status: Never smoker Past Alcohol Use History: None Reported Past Drug Use History: None Reported - Past Family History Mother Family Medical History: CVA/TIA, Diabetes Mellitus Medications and Allergies Home Medications Medication Instructions Recorded Confirmed Type Acetaminophen/Diphenhydramine 1 tab PO HS 02/27/17 11/29/18 History [Tylenol PM 500-25mg] Aspirin EC [Ecotrin Low Dose] 81 mg PO DAILY 02/27/17 11/29/18 History Atorvastatin [Lipitor] 80 mg PO HS 02/27/17 11/29/18 History Calcium Carbonate/Vitamin D3 1 tab PO DAILY 02/27/17 11/29/18 History [Calcium 600-Vit D3 200 Tablet] Hydrochlorothiazide [Hydrodiuril] 12.5 mg PO DAILY 02/27/17 11/29/18 History Losartan Potassium [Cozaar] 100 mg PO DAILY 02/27/17 11/29/18 History Metoprolol Succinate (ER) [Toprol 50 mg PO DAILY 02/27/17 11/29/18 History Xl] Multivitamins, Thera [Multivitamin 1 tab PO DAILY 02/27/17 11/29/18 History (formulary)] Omeprazole 20 mg PO DAILY 02/27/17 11/29/18 History amLODIPine [Norvasc] 10 mg PO DAILY 02/27/17 11/29/18 History metFORMIN HCL ER [Glucophage Xr] 500 mg PO HS 02/27/17 11/29/18 History traMADol HCL [Ultram] 50 mg PO Q6HR PRN 02/27/17 11/29/18 History Allergies Allergy/AdvReac Type Severity Reaction Status Date / Time Sulfa (Sulfonamide Allergy Rash/Hives Verified 11/29/18 10:59 Antibiotics) Surgical - Exam Vital Signs Temp Pulse Resp BP Pulse Ox 97.9 F 56 L 16 146/73 98 11/29/18 11:10 11/29/18 11:10 11/29/18 11:10 11/29/18 11:10 11/29/18 11:10 - General well developed, well nourished, no distress - Eyes normal ocular movement - ENT no hearing loss, no congestion - Neck no masses, trachea midline - Respiratory normal respiratory effort, clear to auscultation - Cardiovascular Rhythm: regular Heart Sounds: normal: S1, S2 - Abdomen Abdomen: soft, non tender, no guarding, no rigid, no rebound - Integumentary normal turgor - Neurologic no disoriented, no combative - Musculoskeletal normal gait, normal posture - Psychiatric oriented to time, oriented to person, oriented to place, speech is normal, memory intact breast exam: Right breast: Multi-positional exam fibrocystic changes, no dominant masses or nodules of concern Right axilla: No adenopathy of concern Left breast: Slightly larger than the right breast, multiple positional exam fibrocystic changes slightly increased fullness in the 12 o'clock position but no discrete masses or nodules of concern Left axilla: No adenopathy of concern Results review mammogram Assessment and Plan Assessment: Impression: 1. Abnormal mammogram left breast 2. Family history of cancer 3. Family history of breast cancer 4. Fibrocystic breast changes 5. Localized mass left breast 12 o'clock position 6. Diabetes 7. Narrow-angle glaucoma 8. High cholesterol 9. Arthritis 10. elevated risk of breast cancer Plan: 1. 3-D stereo biopsy left breast 2. Patient is going to decrease her caffeine intake 3. We have discussed chemoprevention and patient is not interested at this time 4. Medical management of medical conditions 5. Follow up after stereo biopsy CC: DR. Fernandez
== END | disposition home or self-care (01) ==
LOC: WWCWWP 10:49
PROVIDERS: ATTEND Surgery
DX: Z53.9 Procedure and treatment not carried out, unspecified reason (principal)

== ENCOUNTER → 2018-12-13 | Outpatient (CLI) | payer MEDICARE, OTHER ==
[2018-12-13 14:44] VITALS: BP 161/88; PULSE 61; RESP 18; TEMP 97.8; BMI 24.2
--- NOTE | 2018-12-13 14:53 | P.PN ---
Subjective Progress Note Date: 12/13/18 Haleigh is status post left breast stereotactic core biopsy done on the 3-D machine. Pathology is benign this revealed benign breast parenchyma no evidence of cancer this is believed to be concordant. The patient has no complaints related to the procedure. Objective - Vital Signs Vital signs: Vital Signs Temp 97.8 F 12/13/18 14:42 Pulse 61 12/13/18 14:42 Resp 18 12/13/18 14:42 BP 161/88 12/13/18 14:42 Pulse Ox 97 12/13/18 14:42 Intake & Output 12/12/18 12/13/18 12/13/18 18:59 06:59 18:59 Weight 68.039 kg - Constitutional General appearance: Present: average body habitus - EENT Eyes: Present: EOMI ENT: Present: hearing grossly normal - Neck Neck: Present: normal ROM - Respiratory Respiratory: bilateral: CTA - Cardiovascular Rhythm: regular Heart sounds: normal: S1, S2 - Integumentary Integumentary: Present: normal turgor - Musculoskeletal Musculoskeletal: Present: gait normal - Psychiatric Psychiatric Comment(s): Left breast biopsy site clean and dry Mild ecchymosis Very small hematoma no evidence of any infection Assessment and Plan Assessment: Impression: 1. Left breast stereotactic core biopsy benign 2. Fibrocystic breast changes 3. small hematoma at biopsy site 4. mild echymosis at biopsy site Plan: 1. Repeat left breast mammogram and physician exam in 6 months 2. Patient to call sooner if any questions or concerns Cc:
== END ==
LOC: WWCWWP 14:36
PROVIDERS: ATTEND Surgery
DX: Z53.9 Procedure and treatment not carried out, unspecified reason (principal)

== ENCOUNTER → 2019-10-28 | Outpatient (CLI) | payer MEDICARE, OTHER ==
--- NOTE | 2019-10-28 11:35 | MM ---
Reason for exam: follow-up at short interval from prior study. Last mammogram was performed 1 year ago. History: Patient is postmenopausal. Family history of breast cancer in maternal grandmother at age 75 and breast cancer in mother at age 55. Benign stereotactic core biopsy of the left breast, November 2018. Took estrogen for 8 years beginning at age 49. Physical Findings: Nurse did not find any significant physical abnormalities on exam. MG 3D Diag Mammo W/Cad MICHELLE Bilateral CC and MLO view(s) were taken. Prior study comparison: October 21, 2018, bilateral MG 3d screening mammo w/cad. September 10, 2017, bilateral MG 3d screening mammo w/cad. July 31, 2016, bilateral MG 3d screening mammo w/cad. There are scattered fibroglandular densities. Finding #1: There is a new 12 mm irregular mass located 7-8 cm from the nipple in the upper outer quadrant of the left breast at previous mammotome biopsy in the left breast. Finding #2: There are typically benign linear calcifications in both breasts. Skin lesion left breast. These results were verbally communicated with the patient and result sheet given to the patient on 10/28/19. ASSESSMENT: Incomplete: need additional imaging evaluation, BI-RAD 0 RECOMMENDATION: Ultrasound of the left breast.
--- NOTE | 2019-10-28 11:37 | USB ---
Reason for exam: additional evaluation requested from abnormal screening. History: Patient is postmenopausal. Family history of breast cancer in maternal grandmother at age 75 and breast cancer in mother at age 55. Benign stereotactic core biopsy of the left breast, November 2018. Took estrogen for 8 years beginning at age 49. US Breast Limited LT Left limited breast ultrasound including focal area of concern, retroareolar and axilla demonstrates a 1.2 x 0.8 x 1.3cm spiculated, irregular, hypoechoic lesion at 11 o'clock. These results were verbally communicated with the patient and result sheet given to the patient on 10/28/19. ASSESSMENT: Suspicious, BI-RAD 4 RECOMMENDATION: Ultrasound core biopsy of the left breast. Called office with mammographic findings and has scheduled an appointment for the patient for 12/05/19 at 9:[address] Diaz. Biopsy scheduled for 11/18/19 at 1:00. PRELIMINARY REPORT CALLED AND FAXED TO DR. DIAZ ON 10/28/19.
== END | disposition home or self-care (01) ==
LOC: RADMAMWWP 08:54
PROVIDERS: ATTEND Surgery
DX: R92.8 Other abnormal and inconclusive findings on diagnostic imaging of breast (principal)
CPT/HCPCS: 77066; 76642; G0279; 77062

== ENCOUNTER → 2019-11-19 | Day surgery (SDC) | payer MEDICARE, OTHER ==
[2019-11-19 09:41] VITALS: RESP 16
[2019-11-19 11:21] VITALS: BP 112/59; PULSE 58; TEMP 98.1
--- NOTE | 2019-11-19 11:21 | USB ---
EXAMINATION TYPE: US biopsy breast VAD LT, MG post biopsy diagnostic mammo LT wo CAD DATE OF EXAM: 11/19/2019 CLINICAL HISTORY: 68-year-old female with history of a benign mammographic guided core needle biopsy of the left breast in November 2018 (with benign results) but with follow-up showing an enlarging de nsity and a new ultrasound finding. R92.8 Abnormal Mammogram. Referred for ultrasound-guided core nee dle rebiopsy. TECHNIQUE: Ultrasound guided core biopsy of the 11:00 left breast. COMPARISON: 10/28/2019, 02/28/2019 FINDINGS: The procedure of ultrasound guided core biopsy was explained to the patient. Benefits, alt ernatives, and risks were discussed. An informed consent was then obtained. An area of irregular shadowing is demonstrated at the 11:00 position zone A with an inlying echogenic clip. The patient was placed in supine positioning for imaging and for the procedure. The overlying skin w as prepped and draped in usual sterile fashion. Lidocaine was used as anesthetic into the skin and s ubcutaneous tissue up to area of concern in the 11:00 left breast. Under ultrasound guidance, a 13-gauge vacuum-assisted mammotome biopsy gun was used to obtain 11 core samples. The area was extensively sampled with the trough first directed anteriorly, then inferiorl y, and then posteriorly. Following this, a coil clip was left in lesion. The patient tolerated the procedure well without any immediate complication. The patient was kept in the radiology department for short stay after the procedure and then discharged home in stable condi tion. Post procedure mammogram shows the 11-12 o'clock focal asymmetry with both a top hat and coil clip in place. IMPRESSION: Successful, uncomplicated ultrasound guided core biopsy of the 11:00 left breast enlarging focal asym metry despite previous benign pathology results on mammographic biopsy performed November 2018. If r esults remain benign, close follow-up versus needle localization and excision should be considered. F ull pathology results to follow.
== END ==
LOC: RADUSWWP 09:26
PROVIDERS: ATTEND Surgery
DX: N60.12 Diffuse cystic mastopathy of left breast (principal); L90.5 Scar conditions and fibrosis of skin
CPT/HCPCS: 77065; 19083; A4648; J2001; 88305

== ENCOUNTER → 2019-12-05 | Outpatient (CLI) | payer MEDICARE, OTHER ==
[2019-12-05 09:52] VITALS: BP 154/80; PULSE 61; RESP 18; TEMP 98.1
--- NOTE | 2019-12-05 10:20 | P.PN ---
Subjective Progress Note Date: 12/05/19 Principal diagnosis: Ultrasound-guided core biopsy of the left breast Haleigh is a 69-year-old white female who underwent a bilateral mammogram and [id number]. This revealed a 12 mm irregular mass in the upper outer quadrant of the left breast at previous mammotome biopsy site. There are also noted to be benign linear calcifications in both breasts. An ultrasound of the left breast was recommended. Ultrasound was performed which revealed a 1.2 x 1.3 cm spiculated irregular lesion at 11:00. She subsequently underwent an ultrasound- guided core biopsy of this lesion on 9920. Pathology revealed fibrocystic spectrum lesion with focal fibroadenomatoid hyperplasia scar in the bone with benign adipose tissue. However the lesion was felt to be discordant with the radiographic findings. It was reviewed with radiology Dr. Boykin and recommendation was for needle local excisional biopsy. The patient states she feels fullness in that area. She has pain in that area if it is touched. She does drink 4 cups of coffee per day. She does not smoke and is not exposed to secondhand smoke. She has chocolate on occasion. The patient was given the option in the past to do chemoprevention with tamoxifen and she chose not to. We have discussed chemoprevention 5 year risk greater than 1.7% qualified. The patient however at this time is not interested; shows a family history of breast cancer in her mother and she and her sisters were given a recommendation for tamoxifen. However after discussion with her [employer] she opted not to do that. Family history: mother: breast cancer at 64, kidney cancer maternal aunt: breast cancer, hodgkins maternal great grandmother: breast cancer maternal grandmother: skin cancer paternal aunt: breast cancer Hormonal History: menarche: 16 , breast fed: no, age at first : 20 menopause: complete hysterectomy at 49 no cancer BCP: 2 years hormones: 1 year Surgical history: 1. Complete hysterectomy 2.bilateral knee replacement 3. bilateral cataract surgery Medical HIstory: Dm HTN high cholesterol glaucoma Social History: smoke: none alcohol: none drugs: none - Constitutional Constitutional: Reports sweats, Denies chills, Denies fever - EENT Eyes: denies blurred vision, denies pain Ears: deny: decreased hearing, tinnitus Ears, nose, mouth and throat: Denies headache, Denies sore throat - Breasts Breasts: bilateral: as per HPI - Cardiovascular Cardiovascular: Denies chest pain, Denies shortness of breath - Respiratory Respiratory: Denies cough - Gastrointestinal Gastrointestinal: Denies abdominal pain, Denies diarrhea, Denies nausea, Denies vomiting - Genitourinary (Female) Genitourinary: Denies dysuria, Denies hematuria - Menstruation Menstruation: Reports post hysterectomy - Musculoskeletal Comment: arthritis - Integumentary Integumentary: Denies pruritus, Denies rash - Neurological Neurological: Denies numbness, Denies weakness - Psychiatric Psychiatric: Denies anxiety, Denies depression - Endocrine Comment: diabetes, metformin Endocrine: Denies fatigue, Denies weight change - Hematologic/Lymphatic Comment: baby aspirin daily - Allergic/Immunologic Allergic/Immunologic: Reports seasonal allergies Objective - Vital Signs Vital signs: Vital Signs Temp 98.1 F 12/05/19 09:50 Pulse 61 12/05/19 09:50 Resp 18 12/05/19 09:50 BP 154/80 12/05/19 09:50 Pulse Ox 99 12/05/19 09:50 Intake & Output 12/04/19 12/05/19 12/05/19 18:59 06:59 18:59 Weight 65.317 kg - Exam BMI 25.3 - Constitutional General appearance: Present: average body habitus - EENT Eyes: Present: EOMI ENT: Present: hearing grossly normal - Neck Neck: Present: normal ROM - Respiratory Respiratory: bilateral: CTA - Cardiovascular Rhythm: regular Heart sounds: normal: S1, S2 - Gastrointestinal General gastrointestinal: Present: normal bowel sounds, soft - Integumentary Integumentary: Present: normal turgor - Musculoskeletal Musculoskeletal: Present: gait normal - Psychiatric Psychiatric: Present: A&O x's 3, appropriate affect, intact judgment & insight - Additional findings Additional findings: breast exam: BRA: 38C inspection: left breast larger than right breast, ptosis grade 2 bilateral Patient: Right breast: Multiple positional exam fibrocystic changes, no dominant masses or nodules of concern Right axilla: No adenopathy of concern Left breast: Multiple positional exam no dominant masses or nodules of concern larger than right breast, mild increased fullness in the upper outer quadrant area well-healed biopsy site Left axilla: No adenopathy of concern Assessment and Plan Assessment: Impression: 1. Left breast status post ultrasound-guided core biopsy felt to be discordant with radiographic findings therefore needle localization excisional biopsy recommended 2. Family history of cancer 3. Diabetes 4. Hypertension 5. High cholesterol 6. Glaucoma Plan: 1. Needle localization excisional lumpectomy left breast for discordant lesion, possible onco-plastic tissue transfer 2. Surgical clearance from Dr. Puente CC: Dr. Puente The skin benefits of procedure discussed with the patient. These include but are not limited to bleeding, infection, reaction to the anesthetic. The possibility that the lesion of concern would not be excised to necessitate additional procedure. She understands these and wishes to proceed. encounter 25 minutes, > 50% of time in planning and counselling
== END | disposition home or self-care (01) ==
LOC: WWCWWP 09:39
PROVIDERS: ATTEND Surgery
DX: Z53.9 Procedure and treatment not carried out, unspecified reason (principal)

== ENCOUNTER → 2020-01-22 | Outpatient (CLI) | payer MEDICARE, OTHER ==
[2020-01-22 15:08] VITALS: BP 146/85; PULSE 59; RESP 18; TEMP 97.8
--- NOTE | 2020-01-22 15:18 | P.PN ---
Subjective Progress Note Date: 01/22/20 Principal diagnosis: discordant left breast core biopsy Haleigh is a 69-year-old white female who underwent [place] mammogram [place] [id number]. This revealed a 12 mm irregular mass in the upper outer quadrant of the left breast at previous mammotome biopsy site. There are also noted to be benign linear calcifications in both breasts. An ultrasound of the left breast was recommended. Ultrasound was performed which revealed a 1.2 x 1.3 cm spiculated irregular lesion at 11:00. She subsequently underwent an ultrasound- guided core biopsy of this lesion on 9920. Pathology revealed fibrocystic spectrum lesion with focal fibroadenomatoid hyperplasia scar with benign adipose tissue. However, the lesion was felt to be discordant with the radiographic findings. It was reviewed with radiology Dr. Boykin and recommendation was for needle local excisional biopsy. The patient states she feels fullness in that area. She has pain in that area if it is touched. She does drink 4 cups of coffee per day. She does not smoke and is not exposed to secondhand smoke. She has chocolate on occasion. The patient was given the option in the past to do chemoprevention with tamoxifen and she chose not to. We have discussed chemoprevention 5 year risk greater than 1.7% qualified. The patient however at this time is not interested; shows a family history of breast cancer in her mother and she and her sisters were given a recommendation for tamoxifen. However after discussion with her SYSTEM ARCHIVE ANALYST she opted not to do that. Family history: mother: breast cancer at 64, kidney cancer maternal aunt: breast cancer, hodgkins maternal great grandmother: breast cancer maternal grandmother: skin cancer paternal aunt: breast cancer Hormonal History: menarche: 16 , breast fed: no, age at first : 20 menopause: complete hysterectomy at 49 no cancer BCP: 2 years hormones: 1 year Surgical history: 1. Complete hysterectomy 2.bilateral knee replacement 3. bilateral cataract surgery Medical HIstory: Dm HTN high cholesterol glaucoma Social History: smoke: none alcohol: none drugs: none - Constitutional Constitutional: Reports sweats, Denies chills, Denies fever - EENT Eyes: denies blurred vision, denies pain Ears: deny: decreased hearing, tinnitus Ears, nose, mouth and throat: Denies headache, Denies sore throat - Breasts Breasts: bilateral: as per HPI - Cardiovascular Cardiovascular: Denies chest pain, Denies shortness of breath - Respiratory Respiratory: Denies cough - Gastrointestinal Gastrointestinal: Denies abdominal pain, Denies diarrhea, Denies nausea, Denies vomiting - Genitourinary (Female) Genitourinary: Denies dysuria, Denies hematuria - Menstruation Menstruation: Reports post hysterectomy - Musculoskeletal Comment: arthritis - Integumentary Integumentary: Denies pruritus, Denies rash - Neurological Neurological: Denies numbness, Denies weakness - Psychiatric Psychiatric: Denies anxiety, Denies depression - Endocrine Comment: diabetes, metformin Endocrine: Denies fatigue, Denies weight change - Hematologic/Lymphatic Comment: baby aspirin daily - Allergic/Immunologic Allergic/Immunologic: Reports seasonal allergies Objective - Exam BMI 24.7 - Constitutional General appearance: Present: average body habitus - EENT Eyes: Present: EOMI ENT: Present: hearing grossly normal - Neck Neck: Present: normal ROM - Respiratory Respiratory: bilateral: CTA - Cardiovascular Rhythm: regular Heart sounds: normal: S1, S2 - Gastrointestinal General gastrointestinal: Present: normal bowel sounds, soft - Integumentary Integumentary: Present: normal turgor - Musculoskeletal Musculoskeletal: Present: gait normal - Psychiatric Psychiatric: Present: A&O x's 3, appropriate affect - Additional findings Additional findings: breast exam: from exam of (12-05-19) BRA: 38C Inspection: Left breast larger than right breast, ptosis grade 2 bilateral Palpation: right bresat : Multiple positional exam fibrocystic changes, no dominant masses or nodules of concern Right axilla: No adenopathy of concern left bresat: Multiple positional exam no dominant masses or nodules of concern i s larger than the right breast, mild increase fullness upper-outer quadrant area well-healed biopsy site Left axilla: No adenopathy of concern Assessment and Plan Assessment: Impression: 1. Left breast status post ultrasound-guided core biopsy felt to be discordant with radiographic findings therefore needle localization and excisional biopsy recommended 2. Family history of cancer 3. Diabetes 4. Hypertension 5. High cholesterol 6. Glaucoma Plan: 1. Needle localization excisional lumpectomy left breast for discordant lesion, possible onco plastic tissue transfer, will not do a mastopexy incision 2. Surgical clearance from Dr. Puente Risks and benefits of procedure discussed with the patient. These include but are not limited to bleeding, infection, reaction to the anesthetic. The possibility that the lesion of concern would not be excised it would necessitate additional procedures also discussed. She understands and wishes to proceed. CC: Dr. Puente encounter 15 minutes, > 50 % of time spent in planning and counselling
== END | disposition home or self-care (01) ==
LOC: WWCWWP 14:17
PROVIDERS: ATTEND Surgery
DX: Z53.9 Procedure and treatment not carried out, unspecified reason (principal)

== ENCOUNTER 2020-02-03 08:54 | Day surgery (SDC) | payer MEDICARE, OTHER ==
[2020-01-30 08:41] VITALS: BMI 24.9
[~2020-02-03 08:54] MED LIST changes: +DEXAMETHASONE SOD PHOSPHATE 4 MG/ML 1 ML VIAL IV ONE; +HEPARIN SODIUM,PORCINE 5,000 UNIT/ML 1 ML VIAL SQ ONE; +LIDOCAINE 1% (10MG/ML) FOR IV START INTRADERMA PRN; -LIDOCAINE 1% 20 ML VIAL (10MG/ML) FOR IV START INTRADERMA PRN; +MIDAZOLAM 2 MG/2 ML VIAL IV PRN; -MOXIFLOXACIN HCL 0.5% DROPS 3 ML BTL OP ONE; +ONDANSETRON 4 MG/2 ML VIAL IVP ONE; +Pre Op ABX Message 1 EACH MISC MISCELLANE ONE; -TETRACAINE 0.5% OPHTH (PF) DROPS 4 ML BTL OP ONE; -TIMOLOL 0.5% OPHTH DROPS 5 ML BTL OP ONE
[2020-02-03] MEDS ORDERED: ALPRAZolam 0.25 MG TAB ONE (09:43)
[2020-02-03] MEDS ORDERED: ALPRAZolam 0.25 MG TAB PO ONE (09:44)
[2020-02-03 09:54] LABS: Glucose,Whole Blood 173 mg/dL (75-99)
[2020-02-03] MEDS ORDERED: LIDOCAINE 1% INJ 10MG/ML (20 ML MDV) SQ ONE ×3 (10:35→11:51)
[2020-02-03] MEDS ORDERED: fentaNYL (PF) 50 MCG/ML 2 ML AMP ONE (11:19)
[2020-02-03] MEDS ORDERED: ePHEDrine SULFATE/0.9% NACL/PF 50 MG/5 ML SYRINGE IV ONE (11:19)
[2020-02-03] MEDS ORDERED: MIDAZOLAM 2 MG/2 ML VIAL ONE (11:19)
[2020-02-03] MEDS ORDERED: LIDOCAINE 1% INJ 10MG/ML (20 ML MDV) ONE (11:19)
[2020-02-03] MEDS ORDERED: PROPOFOL 10 MG/ML 20 ML VIAL IV ONE (11:19)
--- NOTE | 2020-02-03 12:23 | P.OP ---
Date of Procedure: 02/03/20 Preoperative Diagnosis: Discordant core biopsy left breast Postoperative Diagnosis: Same Procedure(s) Performed: Left breast needle localization excisional lumpectomy Onco plastic tissue transfer, 65.5 cm Anesthesia: DARINA Surgeon: Nichelle Diaz Estimated Blood Loss (ml): 3 IV fluids (ml): 700 Pathology: other (bresat tissue) Condition: stable Disposition: same day Indications for Procedure: Discordant left breast core biopsy Operative Findings: Fibrofatty breast tissue Description of Procedure: Haleigh is a 69-year-old white female status post core biopsy of the area of concern in the left breast. This was considered discordant and needle localization and excisional lumpectomy was recommended. Following needle localization of the area of concern in the left breast the patient was brought to the operating room. Following induction of anesthesia the left breast was prepped and draped in a sterile fashion. We discussed a mastopexy incision but the patient did not want this type of incision. Therefore an incision was made close to the entrance site of the needle. This was dissected down to the shaft of the needle and the needle was brought out into the incision. The surrounding tissue was excised. The defect was 6 x 5 cm in size. The specimen was painted for orientation and an x-ray was performed. X-ray revealed that the area of concern had been removed. Following this the medial and lateral tissue pillars were freed. The medial pillar was 7 cm x 2.5 cm for a total of 17.5 cm, the lateral pillar was 6 cm x 3 cm for a total of 18 cm, the total amount of tissue moved was 65.5 cm. The wound was examined for hemostasis. After we assured that this was attained titanium clips were placed. The medial and lateral pillars of tissue were brought together using 3-0 Vicryl suture. The subcutaneous tissue was closed with 3-0 Vicryl suture. The subcuticular tissue was closed with a 4-0 Monocryl. Mastisol and Steri-Strips were applied. The patient tolerated the procedure in stable condition. All instrument and sponge counts were correct at the end of the case.
--- NOTE | 2020-02-03 12:24 | P.DS ---
Providers Attending physician: Nichelle Diaz Primary care physician: Ilir Puente Plan - Discharge Summary Discharge Rx Participant: No New Discharge Prescriptions: No Action Multivitamins, Thera [Multivitamin (formulary)] 1 tab PO DAILY hydroCHLOROthiazide [Hydrodiuril] 12.5 mg PO DAILY Calcium Carbonate/Vitamin D3 [Calcium 600-Vit D3 200 Tablet] 1 tab PO DAILY Aspirin EC [Ecotrin Low Dose] 81 mg PO DAILY Acetaminophen/Diphenhydramine [Tylenol PM 500-25mg] 1 tab PO HS metFORMIN HCL ER [Glucophage Xr] 500 mg PO BID traMADol HCL [Ultram] 50 mg PO Q6HR PRN PRN Reason: Pain amLODIPine [Norvasc] 10 mg PO DAILY Omeprazole 20 mg PO DAILY Metoprolol Succinate (ER) [Toprol Xl] 50 mg PO DAILY Atorvastatin [Lipitor] 80 mg PO HS Losartan Potassium [Cozaar] 100 mg PO DAILY Discharge Medication List Acetaminophen/Diphenhydramine [Tylenol PM 500-25mg] 1 tab PO HS 02/27/17 [History] Aspirin EC [Ecotrin Low Dose] 81 mg PO DAILY 02/27/17 [History] Atorvastatin [Lipitor] 80 mg PO HS 02/27/17 [History] Calcium Carbonate/Vitamin D3 [Calcium 600-Vit D3 200 Tablet] 1 tab PO DAILY 02/27/17 [History] Losartan Potassium [Cozaar] 100 mg PO DAILY 02/27/17 [History] Metoprolol Succinate (ER) [Toprol Xl] 50 mg PO DAILY 02/27/17 [History] Multivitamins, Thera [Multivitamin (formulary)] 1 tab PO DAILY 02/27/17 [History] Omeprazole 20 mg PO DAILY 02/27/17 [History] amLODIPine [Norvasc] 10 mg PO DAILY 02/27/17 [History] hydroCHLOROthiazide [Hydrodiuril] 12.5 mg PO DAILY 02/27/17 [History] metFORMIN HCL ER [Glucophage Xr] 500 mg PO BID 02/27/17 [History] traMADol HCL [Ultram] 50 mg PO Q6HR PRN 02/27/17 [History] Follow up Appointment(s)/Referral(s): Nichelle Diaz MD [STAFF PHYSICIAN] - 10 Days Activity/Diet/Wound Care/Special Instructions: may shower after 24 hours wear bra at tall times do not drive for 24 hours after discharge or if taking narcotic pain medication Discharge Disposition: HOME SELF-CARE
[2020-02-03] MEDS ORDERED: LACTATED RINGERS 1,000 ML IV ONE (12:25)
[2020-02-03 12:41] VITALS: TEMP 97.1
[2020-02-03 12:59] VITALS: RESP 16
[2020-02-03 13:03] LABS: Glucose,Whole Blood 180 mg/dL (75-99)
[2020-02-03 13:51] VITALS: PULSE 68
[2020-02-03 14:23] VITALS: BP 116/68
--- NOTE | 2020-02-03 18:26 | MM ---
EXAMINATION TYPE: MG pre op needle loc LT, MG surgical specimen LT DATE OF EXAM: 02/03/2020 COMPARISON: 11/19/2019 and 12/05/2018 CLINICAL HISTORY: 64-year-old female referred for needle localization for excision of left breast lesion. Patient with 2 previous benign biopsies of this lesion but with progressive enlargement and increasing density. TECHNIQUE: Needle localization with wire placement and surgical excision of area of concern in the 12:00 left breast. FINDINGS: The procedure of needle localization with wire placement and than surgical excision was explained to the patient. Benefits, alternatives, and risks were discussed. An informed consent was then obtained. The shortest pathway for procedure was chosen. Shortest pathway was a superior approach. The overlying skin was prepped and draped in usual sterile fashion. Lidocaine was used as anesthetic into the skin and subcutaneous tissue up to the level of area of concern. A 5 cm needle was used. It was placed via a superior approach under mammographic guidance. Subsequent 90 degrees mammogram show the needle to be in satisfactory position relative to the targeted area. At this point, wire was placed and the needle was withdrawn. The wire was fixed to patient's skin. Images were marked for surgeon. The patient tolerated the procedure well without any immediate complication. The patient was kept in the radiology department for short stay after the procedure and then taken to surgery for surgical excision. The targeted density with 2 microclips and wire are identified in specimen mammogram. The patient was kept in hospital for short stay after the procedure and then discharged home in stable condition. IMPRESSION: Successful, uncomplicated needle localization with wire placement and surgical excision of enlarging 12:00 left breast lesion despite 2 previous benign biopsies. Full pathology results to follow. Pathology Results: Benign LEFT BREAST, NEEDLE LOCALIZATION EXCISION: Benign breast with fibrocystic changes and previous biopsy site. Recommendation Follow up mammogram of the left breast in 6 months. ALCIDES
== END 2020-02-03 14:45 | disposition home or self-care (01) ==
LOC: OR 08:54
PROVIDERS: ATTEND Surgery
DX: N60.12 Diffuse cystic mastopathy of left breast (principal); I10 Essential (primary) hypertension; E78.5 Hyperlipidemia, unspecified; E11.9 Type 2 diabetes mellitus without complications; K21.9 Gastro-esophageal reflux disease without esophagitis; Z79.84 Long term (current) use of oral hypoglycemic drugs; Z79.82 Long term (current) use of aspirin; Z79.899 Other long term (current) drug therapy; Z88.2 Allergy status to sulfonamides; Z91.013 Allergy to seafood
CPT/HCPCS: 19125; 14301; 14302; 88307; 76098; 19281; J2250; J2001; J3010; J2704

== ENCOUNTER → 2020-02-13 | Outpatient (CLI) | payer MEDICARE, OTHER ==
[2020-02-13 15:20] VITALS: BP 157/77; PULSE 59; RESP 18; TEMP 97.9
--- NOTE | 2020-02-13 15:28 | P.PN ---
Progress Note - Text Progress Note Date: 02/13/20 Haleigh 6-year-old white female status post needle localization and excisional biopsy of area of concern in the left breast. The reason was for inconclusive findings on a core biopsy. Pathology was benign fibrocystic disease. In previous biopsy site was identified. The patient has done well postoperatively. She does have some discomfort at the site if she puts pressure on the area. Physical exam: Lungs: Clear Heart: Regular rate and rhythm Incision: Clean and dry small hematoma at the site Impression: 1. 9 fibrocystic disease of biopsy Plan: Left breast mammogram and physician exam in 6 months CC: Dr. Puente
== END | disposition home or self-care (01) ==
LOC: WWCWWP 15:07
PROVIDERS: ATTEND Surgery
DX: Z53.9 Procedure and treatment not carried out, unspecified reason (principal)

== ENCOUNTER → 2020-08-17 | Outpatient (CLI) | payer MEDICARE, OTHER ==
--- NOTE | 2020-08-17 09:05 | MM ---
Reason for exam: follow-up at short interval from prior study. Last mammogram was performed 9 months ago. History: Patient is postmenopausal. Family history of breast cancer in maternal grandmother at age 75 and breast cancer in mother at age 55. Benign MG pre op needle loc LT of the left breast, February 03, 2020. Benign US biopsy breast VAD LT of the left breast, November 19, 2019. Benign stereotactic core biopsy of the left breast, November 2018. Took estrogen for 8 years beginning at age 49. Physical Findings: Nurse did not find any significant physical abnormalities on exam. MG 3D Diag Mammo W/Cad LT CC and MLO view(s) were taken of the left breast. Prior study comparison: November 19, 2019, left breast MG diagnostic mammo LT wo CAD. October 28, 2019, bilateral MG 3d diag mammo w/cad MICHELLE. October 21, 2018, bilateral MG 3d screening mammo w/cad. There are scattered fibroglandular densities. Post surgical change left breast. These results were verbally communicated with the patient and result sheet given to the patient on 08/17/20. ASSESSMENT: Benign, BI-RAD 2 RECOMMENDATION: Routine screening mammogram of both breasts in 2 months. Back on schedule.
== END | disposition home or self-care (01) ==
LOC: RADMAMWWP 08:13
PROVIDERS: ATTEND Surgery
DX: N64.89 Other specified disorders of breast (principal); Z78.0 Asymptomatic menopausal state; Z80.3 Family history of malignant neoplasm of breast
CPT/HCPCS: 77065; G0279; 77061

== ENCOUNTER → 2020-09-29 | Outpatient (CLI) | payer MEDICARE, OTHER ==
--- NOTE | 2020-09-29 13:57 | P.PN ---
Subjective Progress Note Date: 09/29/20 Principal diagnosis: fibrocystic breast disease Haleigh is a 69-year-old white [place] [address]. This revealed a 12 mm irregular mass in the upper outer quadrant of the left breast at previous mammotome biopsy site. There are also noted to be benign linear calcifications in both breasts. An ultrasound of the left breast was recommended. Ultrasound was performed which revealed a 1.2 x 1.3 cm spiculated irregular lesion at 11:00. She subsequently underwent an ultrasound- guided core biopsy of this lesion on 99. Pathology revealed fibrocystic spectrum lesion with focal fibroadenomatoid hyperplasia scar with benign adipose tissue. However, the lesion was felt to be discordant with the radiographic findings. It was reviewed with radiology Dr. Boykin and recommendation was for needle local excisional biopsy. Secondary to this being discordant she underwent a needle local excisional biopsy on 112 420. This revealed benign breast tissue with fibrocystic changes and previous biopsy site. She underwent a repeat left breast mammogram on 08-17-20. This was felt to be benign BIRADS 2. Patient does not complain of any new lumps masses or nodules in either breast at this time. She does have intermittent breast discomfort related to pressure. Marsha risk analysis: 5 year: 4.5% vs. 2.2% lifetime risk: 12.7 vs 6.3% Caffeine: 4 cups per day Nicotine: Negative Chocolate: Occasional The patient was given the option in the past to do chemoprevention with tamoxifen and she chose not to. We have discussed chemoprevention 5 year risk greater than 1.7% qualified. The patient however at this time is not interested; shows a family history of breast cancer in her mother and she and her sisters were given a recommendation for tamoxifen. However after discussion with her TRANSFUSION AIDE she opted not to do that. Family history: mother: breast cancer at 64, kidney cancer maternal aunt: breast cancer, hodgkins maternal great grandmother: breast cancer maternal grandmother: skin cancer paternal aunt: breast cancer Hormonal History: menarche: 16 , breast fed: no, age at first : 20 menopause: complete hysterectomy at 49 no cancer BCP: 2 years hormones: 1 year Surgical history: 1. Complete hysterectomy 2.bilateral knee replacement 3. bilateral cataract surgery Medical HIstory: Dm HTN high cholesterol glaucoma Social History: smoke: none alcohol: none drugs: none - Constitutional Constitutional: Reports sweats, Denies chills, Denies fever - EENT Eyes: denies blurred vision, denies pain Ears: deny: decreased hearing, tinnitus Ears, nose, mouth and throat: Denies headache, Denies sore throat - Breasts Breasts: bilateral: as per HPI - Cardiovascular Cardiovascular: Denies chest pain, Denies shortness of breath - Respiratory Respiratory: Denies cough - Gastrointestinal Gastrointestinal: Denies abdominal pain, Denies diarrhea, Denies nausea, Denies vomiting - Genitourinary (Female) Genitourinary: Denies dysuria, Denies hematuria - Menstruation Menstruation: Reports post hysterectomy - Musculoskeletal Comment: arthritis - Integumentary Integumentary: Denies pruritus, Denies rash - Neurological Neurological: Denies numbness, Denies weakness - Psychiatric Psychiatric: Denies anxiety, Denies depression - Endocrine Comment: diabetes, metformin Endocrine: Denies fatigue, Denies weight change - Hematologic/Lymphatic Comment: baby aspirin daily - Allergic/Immunologic Allergic/Immunologic: Reports seasonal allergies Objective - Constitutional General appearance: Present: average body habitus - EENT ENT: Present: hearing grossly normal - Neck Neck: Present: normal ROM - Respiratory Respiratory: bilateral: CTA - Cardiovascular Rhythm: regular Heart sounds: normal: S1, S2 - Integumentary Integumentary: Present: normal turgor - Musculoskeletal Musculoskeletal: Present: gait normal - Psychiatric Psychiatric: Present: A&O x's 3, appropriate affect, intact judgment & insight - Additional findings Additional findings: breast exam: BRA: 38C Inspection: Left breast larger than right breast, ptosis grade 2 bilateral; well healed scar left breast Palpation: right bresat : Multiple positional exam fibrocystic changes, no dominant masses or nodules of concern Right axilla: No adenopathy of concern left bresat: Multiple positional exam no dominant masses or nodules of concern is larger than the right breast, mild increase fullness upper-outer quadrant area well-healed biopsy site Left axilla: No adenopathy of concern Assessment and Plan Assessment: Impression: Dm HTN high cholesterol glaucoma bilateral fibrocystic breast changes Plan: 1. Bilateral mammogram back and schedule in November 2. Follow-up after bilateral mammogram 3. Patient encouraged to decrease caffeine intake CC: DR. Puente
[2020-09-29 13:58] VITALS: BP 146/74; PULSE 61; RESP 16; TEMP 98.1
== END ==
LOC: WWCWWP 13:35
PROVIDERS: ATTEND Surgery
DX: N60.12 Diffuse cystic mastopathy of left breast (principal); N60.11 Diffuse cystic mastopathy of right breast; E11.9 Type 2 diabetes mellitus without complications; I10 Essential (primary) hypertension; H40.9 Unspecified glaucoma; E78.00 Pure hypercholesterolemia, unspecified; Z91.013 Allergy to seafood; Z88.2 Allergy status to sulfonamides

== ENCOUNTER → 2020-11-17 | Outpatient (CLI) | payer MEDICARE, OTHER ==
--- NOTE | 2020-11-18 09:28 | MM ---
Reason for exam: screening (asymptomatic). Last mammogram was performed 3 months ago. History: Patient is postmenopausal. Family history of breast cancer in maternal grandmother at age 75 and breast cancer in mother at age 55. Benign MG pre op needle loc LT of the left breast, February 03, 2020. Benign US biopsy breast VAD LT of the left breast, November 19, 2019. Benign stereotactic core biopsy of the left breast, November 2018. Took estrogen for 8 years beginning at age 49. Physical Findings: A clinical breast exam by your physician is recommended on an annual basis and results should be correlated with mammographic findings. MG 3D Screening Mammo W/Cad Bilateral CC and MLO view(s) were taken. Prior study comparison: August 17, 2020, left breast MG 3d diag mammo w/cad LT. October 28, 2019, bilateral MG 3d diag mammo w/cad MICHELLE. There are scattered fibroglandular densities. Finding #1: Architectural distortion in the upper quadrant, middle position of the left breast consistent with known lumpectomy changes. Finding #2: There are typically benign round, linear calcifications in both breasts. There is no discrete abnormality. ASSESSMENT: Benign, BI-RAD 2 RECOMMENDATION: Routine screening mammogram of both breasts in 1 year.
== END | disposition home or self-care (01) ==
LOC: RADMAMWWP 10:46
PROVIDERS: ATTEND Surgery
DX: Z12.31 Encounter for screening mammogram for malignant neoplasm of breast (principal); Z78.0 Asymptomatic menopausal state; Z80.3 Family history of malignant neoplasm of breast
CPT/HCPCS: 77063; 77067

== ENCOUNTER → 2020-11-25 | Outpatient (CLI) | payer MEDICARE, OTHER ==
[2020-11-25 11:26] VITALS: BP 163/81; PULSE 56; RESP 12; TEMP 97.7
--- NOTE | 2020-11-25 11:27 | P.PN ---
Subjective Progress Note Date: 11/25/20 Haleigh is a 69-year-old [place] [address]. This revealed a 12 mm irregular mass in the upper outer quadrant of the left breast at previous mammotome biopsy site. There are also noted to be benign linear calcifications in both breasts. An ultrasound of the left breast was recommended. Ultrasound was performed which revealed a 1.2 x 1.3 cm spiculated irregular lesion at 11:00. She subsequently underwent an ultrasound- guided core biopsy of this lesion on 99. Pathology revealed fibrocystic spectrum lesion with focal fibroadenomatoid hyperplasia scar with benign adipose tissue. However, the lesion was felt to be discordant with the radiographic findings. It was reviewed with radiology Dr. Boykin and recommendation was for needle local excisional biopsy. Secondary to this being discordant she underwent a needle local excisional biopsy on [id number]. This revealed benign breast tissue with fibrocystic changes and previous biopsy site. She underwent a repeat left breast mammogram on 08-17-20. This was felt to be benign BIRADS 2. Patient does not complain of any new lumps masses or nodules in either breast at this time. She does have intermittent breast discomfort related to pressure. She underwent a bilateral screening mammogram on 11-17-20 which was benign BIRAD 2. The patient has not noted any new lumps masses or nodules of concern in either breast. We have discussed the results of her mammogram which was performed on 9821. [place] [address] and another exam is not performed today. Marsha risk analysis: 5 year: 4.5% vs. 2.2% lifetime risk: 12.7 vs 6.3% Caffeine: 4 cups per day Nicotine: Negative Chocolate: Occasional The patient was given the option in the past to do chemoprevention with tamoxifen and she chose not to. We have discussed chemoprevention 5 year risk greater than 1.7% qualified. The patient however at this time is not interested; shows a family history of breast cancer in her mother and she and her sisters were given a recommendation for tamoxifen. However after discussion with her BOWLING TEACHER she opted not to do that. Family history: mother: breast cancer at 64, kidney cancer maternal aunt: breast cancer, hodgkins maternal great grandmother: breast cancer maternal grandmother: skin cancer paternal aunt: breast cancer Hormonal History: menarche: 16 , breast fed: no, age at first : 20 menopause: complete hysterectomy at 49 no cancer BCP: 2 years hormones: 1 year Surgical history: 1. Complete hysterectomy 2.bilateral knee replacement 3. bilateral cataract surgery Medical HIstory: Dm HTN high cholesterol glaucoma Social History: smoke: none alcohol: none drugs: none - Constitutional Constitutional: Reports sweats, Denies chills, Denies fever - EENT Eyes: denies blurred vision, denies pain Ears: deny: decreased hearing, tinnitus Ears, nose, mouth and throat: Denies headache, Denies sore throat - Breasts Breasts: bilateral: as per HPI - Cardiovascular Cardiovascular: Denies chest pain, Denies shortness of breath - Respiratory Respiratory: Denies cough - Gastrointestinal Gastrointestinal: Denies abdominal pain, Denies diarrhea, Denies nausea, Denies vomiting - Genitourinary (Female) Genitourinary: Denies dysuria, Denies hematuria - Menstruation Menstruation: Reports post hysterectomy - Musculoskeletal Comment: arthritis - Integumentary Integumentary: Denies pruritus, Denies rash - Neurological Neurological: Denies numbness, Denies weakness - Psychiatric Psychiatric: Denies anxiety, Denies depression - Endocrine Comment: diabetes, metformin Endocrine: Denies fatigue, Denies weight change - Hematologic/Lymphatic Comment: baby aspirin daily - Allergic/Immunologic Allergic/Immunologic: Reports seasonal allergies Assessment and Plan Assessment: Impression: Diabetes Hypertension High cholesterol Glaucoma Bilateral fibrocystic breast changes/recent bilateral mammogram 48024 benign BIRADS 2 Plan: Bilateral mammogram in 1 year with physician exam at that time CC: Dr. Puente
== END ==
LOC: WWCWWP 10:52
PROVIDERS: ATTEND Surgery
DX: N60.12 Diffuse cystic mastopathy of left breast (principal); N60.11 Diffuse cystic mastopathy of right breast; E11.9 Type 2 diabetes mellitus without complications; I10 Essential (primary) hypertension; E78.00 Pure hypercholesterolemia, unspecified; H40.9 Unspecified glaucoma; Z79.84 Long term (current) use of oral hypoglycemic drugs; Z79.899 Other long term (current) drug therapy; Z88.2 Allergy status to sulfonamides; Z91.013 Allergy to seafood

== ENCOUNTER → 2021-11-21 | Outpatient (CLI) | payer MEDICARE, OTHER ==
--- NOTE | 2021-11-21 08:35 | MM ---
Reason for Exam: Screening (asymptomatic). Last screening mammogram was performed 12 month(s) ago. Patient History: Menarche at age 15. First Full-Term at age 20. Left ovary removed at age 49. Right ovary removed at age 49. Hysterectomy at age 49. Postmenopausal. Estrogen for 8 years from age 49 until age 57. 11/2018, Benign Stereotactic Core Biopsy on the left side. 02/03/2020, Benign Core Biopsy on the left side. 11/19/2019, Benign Core Biopsy on the left side. Maternal grandmother had breast cancer, age 75. Mother had breast cancer, age 55. Risk Values: Marsah 5 year model risk: 4.5%. NCI Lifetime model risk: 12.2%. Prior Study Comparison: 11/19/2019 Left Diagnostic Mammogram, [facility]. 08/17/2020 Left Diagnostic Mammogram, [facility]. 11/17/2020 Bilateral Screening Mammogram, [facility]. Tissue Density: There are scattered fibroglandular densities. Findings: Analyzed By CAD. There is no suspicious group of microcalcifications or new suspicious mass in either breast. Post surgical changes of the left breast. No significant change from prior examination. Overall Assessment: Benign, BI-RAD 2 Management: Screening Mammogram of both breasts in 1 year. A clinical breast exam by your physician is recommended on an annual basis and results should be correlated with mammographic findings. Electronically signed and approved by: Cricket Rodríguez D.O.
== END | disposition home or self-care (01) ==
LOC: RADMAMWWP 07:58
PROVIDERS: ATTEND Surgery
DX: Z12.31 Encounter for screening mammogram for malignant neoplasm of breast (principal); Z78.0 Asymptomatic menopausal state; Z80.3 Family history of malignant neoplasm of breast
CPT/HCPCS: 77063; 77067

== ENCOUNTER → 2021-11-25 | Outpatient (CLI) | payer MEDICARE, OTHER ==
--- NOTE | 2021-11-25 11:22 | P.PN ---
Subjective Progress Note Date: 11/25/21 Principal diagnosis: fibrocystic breast changes Haleigh is a 70-year-old [place] [address]. This revealed a 12 mm irregular mass in the upper outer quadrant of the left breast at previous mammotome biopsy site. There are also noted to be benign linear calcifications in both breasts. An ultrasound of the left breast was recommended. Ultrasound was performed which revealed a 1.2 x 1.3 cm spiculated irregular lesion at 11:00. She subsequently underwent an ultrasound- guided core biopsy of this lesion on 99. Pathology revealed fibrocystic spectrum lesion with focal fibroadenomatoid hyperplasia scar with benign adipose tissue. However, the lesion was felt to be discordant with the radiographic findings. It was reviewed with radiology Dr. Boykin and recommendation was for needle local excisional biopsy. Secondary to this being discordant she underwent a needle local excisional biopsy on [id number]. This revealed benign breast tissue with fibrocystic changes and previous biopsy site. She underwent a repeat left breast mammogram on 08-17-20. This was felt to be benign BIRADS 2. Patient does not complain of any new lumps masses or nodules in either breast at this time. She does have intermittent breast discomfort related to pressure. She underwent a bilateral screening mammogram on 11-21-21 which was benign BIRAD 2. Marsha risk analysis: 5 year: 4.5% vs. 2.2% lifetime risk: 12.2 vs 6.3% Caffeine: 4 cups per day Nicotine: Negative Chocolate: Occasional The patient was given the option in the past to do chemoprevention and she chose not to. We have discussed chemoprevention 5 year risk greater than 1.7% qualified. The patient however at this time is not interested; shows a family history of breast cancer in her mother and she and her sisters were given a recommendation for tamoxifen. However after discussion with her STACKER she opted not to do that. Family history: mother: breast cancer at 64, kidney cancer maternal aunt: breast cancer, hodgkins maternal great grandmother: breast cancer maternal grandmother: skin cancer paternal aunt: breast cancer Hormonal History: menarche: 16 , breast fed: no, age at first : 20 menopause: complete hysterectomy at 49 no cancer BCP: 2 years hormones: 1 year Surgical history: 1. Complete hysterectomy 2.bilateral knee replacement 3. bilateral cataract surgery 4. left breast lumpectomy Medical History: Dm HTN high cholesterol glaucoma Social History: smoke: none alcohol: none drugs: none - Constitutional Constitutional: Reports sweats, Denies chills, Denies fever - EENT Eyes: denies blurred vision, denies pain Ears: deny: decreased hearing, tinnitus Ears, nose, mouth and throat: Denies headache, Denies sore throat - Breasts Breasts: bilateral: as per HPI - Cardiovascular Cardiovascular: Denies chest pain, Denies shortness of breath - Respiratory Respiratory: Denies cough - Gastrointestinal Gastrointestinal: Denies abdominal pain, Denies diarrhea, Denies nausea, Denies vomiting - Genitourinary (Female) Genitourinary: Denies dysuria, Denies hematuria - Menstruation Menstruation: Reports post hysterectomy - Musculoskeletal Comment: arthritis - Integumentary Integumentary: Denies pruritus, Denies rash - Neurological Neurological: Denies numbness, Denies weakness - Psychiatric Psychiatric: Denies anxiety, Denies depression - Endocrine Comment: diabetes, metformin Endocrine: Denies fatigue, Denies weight change - Hematologic/Lymphatic Comment: baby aspirin daily - Allergic/Immunologic Allergic/Immunologic: Reports seasonal allergies Objective - Constitutional General appearance: Present: cooperative - EENT Eyes: Present: EOMI ENT: Present: hearing grossly normal - Neck Neck: Present: normal ROM - Respiratory Respiratory: bilateral: CTA - Cardiovascular Rhythm: regular Heart sounds: normal: S1, S2 - Integumentary Integumentary: Present: normal turgor - Musculoskeletal Musculoskeletal: Present: gait normal - Psychiatric Psychiatric: Present: A&O x's 3, appropriate affect, intact judgment & insight - Additional findings Additional findings: Breast Exam: BRA: 38C Inspection:bilateral grade 2/3 ptosis, nevis left chest scaling and has bleed; under right breast probable fungal infection palpation; right breast: Multiple positional exam no dominant masses or nodules of concern, under the right breast there is approximately a 3 cm area of erythema may be fungal infection Right axilla: No adenopathy of concern Left breast: Multi-positional exam no dominant masses or nodules of concern Left axilla: No adenopathy of concern Nevus left chest, scalene and has had some bleeding in the past Assessment and Plan Assessment: Impression/plan: Fibrocystic breast changes Bilateral mammogram [id number] BIRADS 2 Increased risk for breast cancer patient is being followed closely clinically Nystatin for fungal infection in the right breast Removal of nevus left chest wall in the office CC: Dr. Fernandez
[2021-11-25 11:23] VITALS: BP 148/76; PULSE 80; RESP 17; TEMP 97.8
== END ==
LOC: WWCWWP 10:45
PROVIDERS: ATTEND Surgery
DX: N60.19 Diffuse cystic mastopathy of unspecified breast (principal); B36.8 Other specified superficial mycoses; E11.9 Type 2 diabetes mellitus without complications; I10 Essential (primary) hypertension; E78.00 Pure hypercholesterolemia, unspecified; Z91.013 Allergy to seafood; Z88.2 Allergy status to sulfonamides

== ENCOUNTER → 2022-01-12 | Outpatient (CLI) | payer MEDICARE, OTHER ==
[2022-01-12 08:58] VITALS: BP 152/79; PULSE 93; RESP 17; TEMP 98.3
--- NOTE | 2022-01-12 09:25 | P.PCN ---
Date of Procedure: 01/12/22 Preoperative Diagnosis: Nevus left chest wall Postoperative Diagnosis: Same Procedure(s) Performed: Excision nevus left chest wall Anesthesia: local Surgeon: Nichelle Diaz Pathology: other (Nevus left chest wall) Condition: stable Disposition: same day Indications for Procedure: Scalene/bleeding nevus left chest wall rule out malignancy Operative Findings: Nevus left chest wall Description of Procedure: The area of concern in the left chest was prepped. One percent lidocaine was used to anesthetize the area of concern. Wide excision was performed. Skin was closed using a nylon suture. Excision site was 1 cm in size. The patient christel ated the procedure in stable condition. Specimen sent to pathology. Informed consent was obtained prior to the procedure. The patient will follow up next week for suture removal. CC: Dr. Puente
== END ==
LOC: WWCWWP 08:48
PROVIDERS: ATTEND Surgery
DX: D22.5 Melanocytic nevi of trunk (principal); Z91.013 Allergy to seafood; Z88.2 Allergy status to sulfonamides
CPT/HCPCS: 88305

== ENCOUNTER → 2022-01-19 | Outpatient (CLI) | payer MEDICARE, OTHER ==
[2022-01-19 14:38] VITALS: BP 164/77; PULSE 53; RESP 17; TEMP 98.4
--- NOTE | 2022-01-19 14:44 | P.PN ---
Progress Note - Text Progress Note Date: 01/19/22 Haleigh underwent resection of a left chest wall lesion on 01-12-22. This was Seborrheic keratosis. Incision clean and dry Plan: suture removal bilateral mammogram in november 2022 with appointment CC: Dr. Puente
== END | disposition home or self-care (01) ==
LOC: WWCWWP 13:33
PROVIDERS: ATTEND Surgery
DX: Z53.9 Procedure and treatment not carried out, unspecified reason (principal)

== ENCOUNTER → 2022-11-23 | Outpatient (CLI) | payer MEDICARE, OTHER ==
--- NOTE | 2022-11-24 08:57 | MM ---
Reason for Exam: Screening (asymptomatic). Last screening mammogram was performed 12 month(s) ago. Patient History: Menarche at age 15. First Full-Term at age 20. Left ovary removed at age 49. Right ovary removed at age 49. Hysterectomy at age 49. Postmenopausal. Estrogen for 8 years from age 49 until age 57. 11/2018, Benign Stereotactic Core Biopsy on the left side. 02/03/2020, Benign Core Biopsy on the left side. 11/19/2019, Benign Core Biopsy on the left side. Maternal grandmother had breast cancer, age 75. Mother had breast cancer, age 55. Risk Values: Marsha 5 year model risk: 4.6%. NCI Lifetime model risk: 11.6%. Prior Study Comparison: 07/31/2016 Bilateral Screening Mammogram, [facility]. 09/10/2017 Bilateral Screening Mammogram, [facility]. 09/14/2017 Left Diagnostic Mammogram, [facility]. 10/21/2018 Bilateral Screening Mammogram, [facility]. 11/04/2018 Left Diagnostic Mammogram, [facility]. 10/28/2019 Bilateral Diagnostic Mammogram, [facility]. 11/19/2019 Left Diagnostic Mammogram, [facility]. 08/17/2020 Left Diagnostic Mammogram, [facility]. 11/17/2020 Bilateral Screening Mammogram, [facility]. 11/21/2021 Bilateral MG 3D screening mammo w/cad, [facility]. Tissue Density: There are scattered fibroglandular densities. Findings: Analyzed By CAD. There is no suspicious group of microcalcifications or new suspicious mass in either breast. Stable postbiopsy changes left breast. Overall Assessment: Benign, BI-RAD 2 Management: Screening Mammogram of both breasts in 1 year. . Patient should continue monthly self-breast exams. A clinical breast exam by your physician is recommended on an annual basis. This exam should not preclude additional follow-up of suspicious palpable abnormalities. Note on Marsha scores and lifetime risk: 1. A Marsha score greater than 3% is considered moderate risk. If this is the case, consider specialist referral to assess eligibility for a risk reducing agent. 2. If overall lifetime risk for the development of breast cancer is 20% or higher, the patient may qualify for future screening with alternating mammogram and breast MRI. Electronically signed and approved by: Kj Barnes M.D. Radiologis
== END ==
LOC: RADMAMWWP 11-24 09:09
PROVIDERS: ATTEND Surgery
DX: Z12.31 Encounter for screening mammogram for malignant neoplasm of breast (principal)
CPT/HCPCS: 77063; 77067

== ENCOUNTER → 2022-11-30 | Outpatient (CLI) | payer MEDICARE, OTHER ==
--- NOTE | 2022-11-30 10:59 | P.PN ---
Subjective Progress Note Date: 11/30/22 Principal diagnosis: fibrocystic breast changes fibrocystic breast changes Haleigh is a 71-year-old [place] [address]. This revealed a 12 mm irregular mass in the upper outer quadrant of the left breast at previous mammotome biopsy site. There are also noted to be benign linear calcifications in both breasts. An ultrasound of the left breast was recommended. Ultrasound was performed which revealed a 1.2 x 1.3 cm spiculated irregular lesion at 11:00. She subsequently underwent an ultrasound- guided core biopsy of this lesion on 9920. Pathology revealed fibrocystic spectrum lesion with focal fibroadenomatoid hyperplasia scar with benign adipose tissue. However, the lesion was felt to be discordant with the radiographic findings. It was reviewed with radiology Dr. Boykin and recommendation was for needle local excisional biopsy. Secondary to this being discordant she underwent a needle local excisional biopsy on [id number]. This revealed benign breast tissue with fibrocystic changes and previous biopsy site. She underwent a repeat left breast mammogram on 08-17-20. This was felt to be benign BIRADS 2. Patient does not complain of any new lumps masses or nodules in either breast at this time. She does have intermittent breast discomfort related to pressure. She underwent a bilateral screening mammogram on 11-23-22 which was benign BIRAD 2. lesion removed left chest wall seborrheic keratosis 01-12-22 Marsha risk analysis: 5 year: 6.4 vs. 2.2% patient has declined chemoprevention Caffeine: 4 cups per day Nicotine: Negative Chocolate: Occasional The patient was given the option in the past to do chemoprevention and she chose not to. We have discussed chemoprevention 5 year risk greater than 1.7% qualified. The patient however at this time is not interested; shows a family history of breast cancer in her mother and she and her sisters were given a recommendation for tamoxifen. However after discussion with her CARBON DIOXIDE OPERATOR she opted not to do that. Family history: mother: breast cancer at 64, kidney cancer maternal aunt: breast cancer, hodgkins maternal great grandmother: breast cancer maternal grandmother: skin cancer paternal aunt: breast cancer Hormonal History: menarche: 16 , breast fed: no, age at first : 20 menopause: complete hysterectomy at 49 no cancer BCP: 2 years hormones: 1 year Surgical history: 1. Complete hysterectomy 2.bilateral knee replacement 3. bilateral cataract surgery 4. left breast lumpectomy Medical History: Dm HTN high cholesterol glaucoma Social History: smoke: none alcohol: none drugs: none - Constitutional Constitutional: Reports sweats, Denies chills, Denies fever - EENT Eyes: denies blurred vision, denies pain Ears: deny: decreased hearing, tinnitus Ears, nose, mouth and throat: Denies headache, Denies sore throat - Breasts Breasts: bilateral: as per HPI - Cardiovascular Cardiovascular: Denies chest pain, Denies shortness of breath - Respiratory Respiratory: Denies cough - Gastrointestinal Gastrointestinal: Denies abdominal pain, Denies diarrhea, Denies nausea, Denies vomiting - Genitourinary (Female) Genitourinary: Denies dysuria, Denies hematuria - Menstruation Menstruation: Reports post hysterectomy - Musculoskeletal Comment: arthritis - Integumentary Integumentary: Denies pruritus, Denies rash - Neurological Neurological: Denies numbness, Denies weakness - Psychiatric Psychiatric: Denies anxiety, Denies depression - Endocrine Comment: diabetes, metformin Endocrine: Denies fatigue, Denies weight change - Hematologic/Lymphatic Comment: baby aspirin daily - Allergic/Immunologic Allergic/Immunologic: Reports seasonal allergies Objective - Constitutional General appearance: Present: cooperative - EENT Eyes: Present: EOMI ENT: Present: hearing grossly normal - Neck Neck: Present: normal ROM - Respiratory Respiratory: bilateral: CTA - Cardiovascular Rhythm: regular Heart sounds: normal: S1, S2 - Integumentary Integumentary: Present: normal turgor - Musculoskeletal Musculoskeletal: Present: gait normal - Psychiatric Psychiatric: Present: A&O x's 3, appropriate affect, intact judgment & insight - Additional findings Additional findings: Breast Exam: BRA: 38C Inspection:bilateral grade 2/3 ptosis, under right breast no fungal infection palpation; right breast: Multiple positional exam no dominant masses or nodules of concern Right axilla: No adenopathy of concern Left breast: Multi-positional exam no dominant masses or nodules of concern Left axilla: No adenopathy of concern Assessment and Plan Assessment: Impression/plan: Fibrocystic breast changes Bilateral mammogram [id number] BIRADS 2 Increased risk for breast cancer patient is being followed closely clinically, has chosen no chemoprevention CC: Dr. Fernandez
== END ==
LOC: WWCWWP 10:34
PROVIDERS: ATTEND Surgery
DX: N60.11 Diffuse cystic mastopathy of right breast (principal); N60.12 Diffuse cystic mastopathy of left breast; N63.21 Unspecified lump in the left breast, upper outer quadrant; L82.1 Other seborrheic keratosis; I10 Essential (primary) hypertension; E78.00 Pure hypercholesterolemia, unspecified; E11.9 Type 2 diabetes mellitus without complications; Z80.3 Family history of malignant neoplasm of breast; Z96.653 Presence of artificial knee joint, bilateral; Z91.013 Allergy to seafood; Z88.2 Allergy status to sulfonamides; Z79.84 Long term (current) use of oral hypoglycemic drugs; Z79.899 Other long term (current) drug therapy

== ENCOUNTER → 2023-11-26 | Outpatient (CLI) | payer MEDICARE, OTHER ==
--- NOTE | 2023-11-26 14:43 | MM ---
Reason for Exam: Screening (asymptomatic). Last screening mammogram was performed 12 month(s) ago. Patient History: Menarche at age 15. First Full-Term at age 20. Left ovary removed at age 49. Right ovary removed at age 49. Hysterectomy at age 49. Postmenopausal. Estrogen for 8 years from age 49 until age 57. 11/2018, Benign Stereotactic Core Biopsy on the left side. 02/03/2020, Benign Core Biopsy on the left side. 11/19/2019, Benign Core Biopsy on the left side. Maternal grandmother had breast cancer, age 75. Mother had breast cancer, age 55. Risk Values: Marsha 5 year model risk: 4.6%. NCI Lifetime model risk: 11.0%. Prior Study Comparison: 11/17/2020 Bilateral Screening Mammogram, [facility]. 11/21/2021 Bilateral MG 3D screening mammo w/cad, [facility]. 11/23/2022 Bilateral MG 3D screening mammo w/cad, [facility]. Tissue Density: There are scattered areas of fibroglandular density. Findings: Analyzed By CAD. Pattern is stable. Post biopsy changes are within the left breast. Calcifications present bilaterally appears stable. No suspicious groups of microcalcifications, spiculated or lobular masses, architectural distortion or other secondary signs of malignancy are mammographically apparent. Overall Assessment: Benign, BI-RAD 2 Management: Screening Mammogram of both breasts in 1 year. A negative mammogram report should not preclude additional follow up of suspicious palpable abnormalities. Patient should continue monthly self breast exam. A clinical breast exam by your physician is recommended on an annual basis and results should be correlated with mammographic findings. Note on Marsha scores and lifetime risk: 1. A Marsha score greater than 3% is considered moderate risk. If this is the case, consider specialist referral to assess eligibility for a risk reducing agent. 2. If overall lifetime risk for the development of breast cancer is 20% or higher, the patient may qualify for future screening with alternating mammogram and breast MRI. [facility], , 11/26/2023 2:40 PM. Electronically signed and approved by: Charly Boykin D.O. Radiologis
== END | disposition home or self-care (01) ==
LOC: RADMAMWWP 08:52
PROVIDERS: ATTEND Surgery
DX: Z12.31 Encounter for screening mammogram for malignant neoplasm of breast
CPT/HCPCS: 77063; 77067

== ENCOUNTER → 2023-11-30 | Outpatient (CLI) | payer MEDICARE, OTHER ==
[2023-11-30 09:55] VITALS: BP 133/79; PULSE 56; RESP 16; TEMP 97.9
--- NOTE | 2023-11-30 09:58 | P.PN ---
Subjective Progress Note Date: 11/30/23 Principal diagnosis: fibrocystic breast disease 11/30/22 10:50Initialization Date: 11/30/22 10:50 Subjective: 11-30-23 Principal diagnosis: fibrocystic breast changes Haleigh is a 72-year-old white female [place] [address]. This revealed a 12 mm irregular mass in the upper outer quadrant of the left breast at previous mammotome biopsy site. There are also noted to be benign linear calcifications in both breasts. An ultrasound of the left breast was recommended. Ultrasound was performed which revealed a 1.2 x 1.3 cm spiculated irregular lesion at 11:00. She subsequently underwent an ultrasound- guided core biopsy of this lesion on 99. Pathology revealed fibrocystic spectrum lesion with focal fibroadenomatoid hyperplasia scar with benign adipose tissue. However, the lesion was felt to be discordant with the radiographic findings. It was reviewed with radiology Dr. Boykin and recommendation was for needle local excisional biopsy. Secondary to this being discordant she underwent a needle local excisional biopsy on [id number]. This revealed benign breast tissue with fibrocystic changes and previous biopsy site. She underwent a repeat left breast mammogram on 08-17-20. This was felt to be benign BIRADS 2. Patient does not complain of any new lumps masses or nodules in either breast at this time. She does have intermittent breast discomfort related to pressure. She underwent a bilateral screening mammogram on 11-26-23 which was benign BIRAD 2. lesion removed left chest wall seborrheic keratosis 01-12-22 Marsha risk analysis: 5 year: 4.6% lifetime risk: 11% patient has declined chemoprevention Caffeine: 4 cups per day Nicotine: Negative Chocolate: Occasional The patient was given the option in the past to do chemoprevention and she chose not to. We have discussed chemoprevention 5 year risk greater than 1.7% qualified. The patient however at this time is not interested; shows a family history of breast cancer in her mother and she and her sisters were given a recommendation for tamoxifen. However after discussion with her SUPERVISOR FOOD CHECKERS AND CASHIERS she opted not to do that. Family history: mother: breast cancer at 64, kidney cancer maternal aunt: breast cancer, hodgkins maternal great grandmother: breast cancer maternal grandmother: skin cancer paternal aunt: breast cancer Hormonal History: menarche: 16 , breast fed: no, age at first : 20 menopause: complete hysterectomy at 49 no cancer BCP: 2 years hormones: 1 year Surgical history: 1. Complete hysterectomy 2.bilateral knee replacement 3. bilateral cataract surgery 4. left breast lumpectomy Medical History: Dm HTN high cholesterol glaucoma Social History: smoke: none alcohol: none drugs: none - Constitutional Constitutional: Reports sweats, Denies chills, Denies fever - EENT Eyes: denies blurred vision, denies pain Ears: deny: decreased hearing, tinnitus Ears, nose, mouth and throat: Denies headache, Denies sore throat - Breasts Breasts: bilateral: as per HPI - Cardiovascular Cardiovascular: Denies chest pain, Denies shortness of breath - Respiratory Respiratory: Denies cough - Gastrointestinal Gastrointestinal: Denies abdominal pain, Denies diarrhea, Denies nausea, Denies vomiting - Genitourinary (Female) Genitourinary: Denies dysuria, Denies hematuria - Menstruation Menstruation: Reports post hysterectomy - Musculoskeletal Comment: arthritis - Integumentary Integumentary: Denies pruritus, Denies rash - Neurological Neurological: Denies numbness, Denies weakness - Psychiatric Psychiatric: Denies anxiety, Denies depression - Endocrine Comment: diabetes, metformin Endocrine: Denies fatigue, Denies weight change - Hematologic/Lymphatic Comment: baby aspirin daily - Allergic/Immunologic Allergic/Immunologic: Reports seasonal allergies Objective - Constitutional General appearance: Present: cooperative - EENT Eyes: Present: EOMI ENT: Present: hearing grossly normal - Neck Neck: Present: normal ROM - Respiratory Respiratory: bilateral: CTA - Cardiovascular Rhythm: regular Heart sounds: normal: S1, S2 - Integumentary Integumentary: Present: normal turgor - Musculoskeletal Musculoskeletal: Present: gait normal - Psychiatric Psychiatric: Present: A&O x's 3, appropriate affect, intact judgment & insight - Additional findings Additional findings: Breast Exam: BRA: 38C Inspection:bilateral grade 2/3 ptosis, palpation; right breast: Multiple positional exam no dominant masses or nodules of concern Right axilla: No adenopathy of concern Left breast: Multi-positional exam no dominant masses or nodules of concern Left axilla: No adenopathy of concern Assessment and Plan Assessment: Impression/plan: Fibrocystic breast changes Bilateral mammogram [id number] personally reviewed BIRADS 2 Increased risk for breast cancer patient is being followed closely clinically, has chosen no chemoprevention CC: Dr. Fernandez
== END ==
LOC: WWCWWP 09:38
PROVIDERS: ATTEND Surgery
DX: R92.1 Mammographic calcification found on diagnostic imaging of breast (principal); R92.8 Other abnormal and inconclusive findings on diagnostic imaging of breast; N60.11 Diffuse cystic mastopathy of right breast; N60.12 Diffuse cystic mastopathy of left breast; N63.21 Unspecified lump in the left breast, upper outer quadrant; L82.1 Other seborrheic keratosis; Z80.3 Family history of malignant neoplasm of breast; Z88.2 Allergy status to sulfonamides; Z91.013 Allergy to seafood